=== PATIENT | female | born 1930 | race Caucasian/White ===

== ENCOUNTER 2016-11-20 12:34 | Inpatient (IN) ==
--- NOTE | 2016-11-20 13:30 | Emergency Department Note ---
Female Urogenital HPI - General Chief complaint: Urogenital-Female Stated complaint: Burning with urination Time Seen by Provider: 11/20/16 13:16 Source: patient, family Mode of arrival: wheelchair Limitations: no limitations - History of Present Illness HPI Narrative: 86-year-old female who was [facility] facility comes in with dysuria and burning with urination. Notes chills but no objective fever. She also complains of some vaginal swelling. States she's been constipated for 5 days took some prune juice this morning without effect. No new medicines besides a fluid pill for her lower extremity edema. Dr. waterman took her off of Plavix - Related Data Allergies Allergy/AdvReac Type Severity Reaction Status Date / Time metformin [METFORMIN] Allergy Intermediate Unknown Verified 11/20/16 12:40 Amoxicillin [AMOXICILLIN] Allergy Unknown UNKNOWN Verified 11/20/16 12:40 aspirin [ASPIRIN] Allergy Unknown Shortness Verified 11/20/16 12:40 of Breath codeine [CODEINE] Allergy Unknown UNKNOWN Verified 11/20/16 12:40 morphine [MORPHINE] AdvReac Unknown unknown Verified 11/20/16 12:40 From DEMEROL Allergy Unknown NAUSEA Uncoded 03/11/15 14:24 Review of Systems All systems ED: reviewed and negative except as stated. Past Medical History - Past Medical History Attestation: Yes: The following information was validated with the patient. Physical Exam Normocephalic atraumatic. Conjunctiva clear sclerae anicteric. No nasal discharge. Oropharynx is pink and moist. Heart is regular rate and rhythm. Lungs are clear to auscultation bilaterally. Abdomen is soft and mildly diffusely tender but worse in the lower quadrants. No peritoneal signs or guarding. Exam of the pelvis shows some mild redness to the vulva consistent with yeast. No discharge however noted. I do not see any vulvar swelling but perhaps the patient is she talking about pelvic area swelling - I don't see any distention however either. Bilateral lower extremities with trace edema. +2 radial pulse. Alert and oriented. Does not remember her medicines or medical conditions - General Limitations: no limitations Course Vital Signs Temperature 97.2 F L 11/20/16 12:35 Pulse Rate 70 11/20/16 12:35 Respiratory Rate 16 11/20/16 12:35 Blood Pressure 132/63 11/20/16 12:35 Pulse Oximetry (%) 99 11/20/16 12:35 Temperature 97.2 F L 11/20/16 12:35 Pulse Rate 66 11/20/16 15:26 Respiratory Rate 20 11/20/16 15:26 Blood Pressure 189/72 11/20/16 15:26 Pulse Oximetry (%) 98 11/20/16 15:26 Urogenital-Female - Lab Data Lab results reviewed: Yes I reviewed the patient's lab results. Result diagrams: 11/20/16 14:05 11/20/16 15:00 Lab Results 11/20/16 11/20/16 11/20/16 Range/Units 14:05 14:05 14:05 WBC 7.4 (4.5-11.0) K/mcL RBC 3.92 L (4.00-5.20) M/mcL Hgb 13.6 (12.0-15.0) g/dL Hct 40.1 (36.0-48.0) % POC Hct 42.0 (36.0-48.0) % MCV 102.3 H (80.0-100.0) fL MCH 34.6 H (26.0-34.0) pg MCHC 33.8 (31.0-36.0) g/dL RDW 11.9 (11.5-14.5) % Plt Count 288 (140-440) K/mcL MPV 9.2 (7.4-10.4) fL Gran % 68.2 (38.0-78.0) % Lymph % (Auto) 18.7 (15.5-49.0) % Kern % (Auto) 10.1 H (1.0-9.0) % Eos % (Auto) 2.3 (0.0-7.0) % Baso % (Auto) 0.7 (0.0-2.0) % Gran # 5.0 (1.8-8.0) K/mcL Lymph # 1.4 L (1.5-4.8) K/mcL Kern # 0.7 (0.1-0.9) K/mcL Eos # 0.2 (0.0-0.7) K/mcL Baso # 0.1 (0.0-0.3) K/mcL POC Sodium 130 L (133-145) mmol/L POC Potassium 4.9 (3.3-5.1) mmol/L POC Chloride 95 L (96-108) mmol/L POC Total CO2 23 (22-30) mmol/L POC BUN 32 H (8-23) mg/dl POC Creatinine 1.3 H (0.6-1.1) mg/dl POC Glucose 601 H* (70-105) mg/dL POC WB Ioniz Calcium 1.22 (1.16-1.32) mmol/L Beta-Hydroxybutyrate 0 (< 0.27) mmol/L Urinalysis shows moderate blood and leukocytes and specific gravity 1.010 - Radiology Data Radiology results reviewed: Yes I reviewed the patient's radiology results. Abdominal 2 view series shows no free air or concerning gas pattern. Lots of stool Disposition Clinical Impression: Hyperosmolar non-ketotic state in patient with type 2 diabetes mellitus, Constipation Urinary tract infection Qualifiers: Urinary tract infection type: acute cystitis Hematuria presence: with hematuria Qualified Code(s): N30.01 - Acute cystitis with hematuria Summary: Initially treated for UTI with possible yeast ciprofloxacin and Diflucan Then found to have blood sugar over 600- start IV insulin drip per protocol order set. Discussed with Dr. An, hospitalist who will admit for further care. He recommended Rocephin coverage as well Disposition: Xfer As Inpt ([facility]) Condition: Fair Referrals: Ana Cristina Valentine MD [Primary Care Provider] - Jose Carreon MD [Physician] -
[2016-11-20] MEDS ORDERED: FLUCONAZOLE 150 MG TABLET PO ONE (13:56)
[2016-11-20] MEDS ORDERED: CIPROFLOXACIN 500 MG TABLET PO ONE (13:56)
[2016-11-20] MEDS ORDERED: 0.9 % SODIUM CHLORIDE 1,000 ML IV ONE (14:42)
[2016-11-20] MEDS ORDERED: INSULIN REGULAR, HUMAN 50 UNIT in 0.9 % SODIUM CHLORIDE 100 ML IV SCH ×2 (14:45→15:46)
[2016-11-20] MEDS ORDERED: INSULIN REGULAR, HUMAN 1 UNIT/0.01 ML UNIT IV ONE (14:45)
[2016-11-20 14:58] LABS: Basophils # (Auto) 0.1 K/mcL (0.0-0.3); Basophils % (Auto) 0.7 % (0.0-2.0); Eosinophils # (Auto) 0.2 K/mcL (0.0-0.7); Eosinophils % (Auto) 2.3 % (0.0-7.0); Granulocytes % (Auto) 68.2 % (38.0-78.0); Lymphocytes # (Auto) 1.4 K/mcL (1.5-4.8); Lymphocytes % (Auto) 18.7 % (15.5-49.0); Mean Cell Volume 102.3 fL (80.0-100.0); Mean Corpuscular HGB Conc 33.8 g/dL (31.0-36.0); Mean Corpuscular Hemoglobin 34.6 pg (26.0-34.0); Monocytes # (Auto) 0.7 K/mcL (0.1-0.9); Monocytes % (Auto) 10.1 % (1.0-9.0); Platelet Count 288 K/mcL (140-440); RBC 3.92 M/mcL (4.00-5.20); Red Cell Distribution Width 11.9 % (11.5-14.5)
--- NOTE | 2016-11-20 15:26 | XRay Report ---
HISTORY: Reason for Exam:constipation x 5 days FINDINGS: There is a normal amount of stool throughout the colon. There is no evidence of bowel obstruction or free intra-abdominal air. Few small nonspecific air-fluid levels are seen in small and large intestine. There is no free intra-abdominal air. Vascular calcifications are seen in the abdomen or pelvis. The spine has a mild levoscoliotic curvature. There is more stool in the colon today than was in the prior exam done on 12/22/13. IMPRESSION: No evidence of bowel obstruction or fecal impaction Interpreted and Authenticated by: Tobi Tellez 11/20/16
[2016-11-20 15:47] LABS: Beta Hydroxybutyrate 0 mmol/L (< 0.27)
[2016-11-20] MEDS ORDERED: INSULIN REGULAR, HUMAN 50 UNIT in 0.9 % SODIUM CHLORIDE 99.5 ML IV SCH (15:48)
[2016-11-20] MEDS ORDERED: cefTRIAXone 1 GM in DEXTROSE 5% IN WATER 50 ML IV ONE (16:20)
[2016-11-20] MEDS ORDERED: POTASSIUM CHLORIDE 40 MEQ in DEXTROSE 5% IN WATER 500 ML IV ONE (16:20)
[2016-11-20] MEDS ORDERED: DEXTROSE 50% 50 ML VIAL IV ONE (17:31)
[2016-11-20 17:51] LABS: ALT/SGPT 13 U/l (0-40); Albumin/Globulin Ratio 1.4 (1.0-2.3); Alkaline Phosphatase 69 U/L (39-117); Bilirubin,Direct < 0.2 mg/dL (0.0-0.3); Blood Urea Nitrogen 30 mg/dl (8-23); Gamma Glutamyl Transpeptidase 14 U/L (5-36); Magnesium 1.8 mg/dL (1.6-2.5); Phosphorous 4.1 mg/dL (2.7-4.5)
[2016-11-20 18:18] LABS: Estimated Average Glucose(eAG) 280 mg/dL; Hemoglobin A1C 11.4 % HGB (4.0-6.0)
[2016-11-20] MEDS ORDERED: ACETAMINOPHEN 1,000 MG/100 ML BOTTLE IV PRN (19:18)
[2016-11-20] MEDS ORDERED: GENTAMICIN SULFATE 180 MG in 0.9 % SODIUM CHLORIDE 250 ML IV SCH (19:18)
[2016-11-20] MEDS ORDERED: POTASSIUM CHLORIDE 20 MEQ PACKET PO PRN (19:18)
[2016-11-20] MEDS ORDERED: DEXTROSE 50% 50 ML VIAL IV PRN (19:18)
[2016-11-20] MEDS ORDERED: ACETAMINOPHEN 325 MG TABLET PO PRN (19:18)
[2016-11-20] MEDS ORDERED: MAGNESIUM SULFATE 2 GM/50 ML BAG IV PRN (19:18)
[2016-11-20] MEDS ORDERED: ONDANSETRON 4 MG/2 ML VIAL IV PRN (19:18)
[2016-11-20] MEDS: cefTRIAXone 2 GM in DEXTROSE 5% IN WATER 50 ML IV SCH (20:32)
[2016-11-20] MEDS ORDERED: GENTAMICIN SULFATE 80 MG/2 ML VIAL ONE (20:40)
[2016-11-20] MEDS: HEPARIN 5,000 UNIT/ML VIAL SQ SCH (20:50)
[2016-11-20] MEDS: DOCUSATE SODIUM 100 MG CAPSULE PO SCH (20:50)
[2016-11-20] MEDS: INSULIN GLARGINE, HUMAN 1 UNIT/0.01 ML SQ SCH (20:51)
[2016-11-20] MEDS: INSULIN LISPRO 1 UNIT/0.01 ML UNIT SQ SCH (20:52)
[2016-11-20] MEDS: 0.9 % SODIUM CHLORIDE 1,000 ML IV SCH (20:54)
[2016-11-20 20:55] LABS: Appearance,Urine CLOUDY; Bacteria,Urine FEW /hpf (0); Bilirubin,Urine NEG (NEG); Color,Urine YELLOW; Glucose,Urine (UA) >=500 mg/dL (NEG); Leukocyte Esterase,Urine 500 /uL (NEG); Mucus,Urine FEW /hpf (0); Nitrate,Urine POS (NEG); Protein,Urine NEG (NEG); Specific Gravity,Urine 1.007 (1.000-1.035); Urine Blood 0.03 mg/dL (<0.03); Urine Budding Yeast FEW /hpf (0); Urine RBC 6 /hpf (0-1); Urine Squamous Epithelial Cell 0 /hpf (0-4); Urine Transitional Epi Cells < 1 /hpf (0-2); Urine WBC > 182 /hpf (0-4); Urobilinogen,Urine NEG (NEG)
[2016-11-20] MEDS: 0.9 % SODIUM CHLORIDE 10 ML SYRINGE IV SCH (20:55)
[2016-11-20] MEDS: SENNOSIDES/DOCUSATE SODIUM 1 TAB TABLET PO SCH (20:55)
[2016-11-20] MEDS: traZODone HCL 50 MG TABLET PO PRN (21:21)
[2016-11-21] MEDS: INSULIN LISPRO 1 UNIT/0.01 ML UNIT SQ SCH ×5 (04:28→20:41)
[2016-11-21 05:07] LABS: Mean Cell Volume 104.1 fL (80.0-100.0); Mean Corpuscular HGB Conc 33.3 g/dL (31.0-36.0); Mean Corpuscular Hemoglobin 34.7 pg (26.0-34.0); Platelet Count 262 K/mcL (140-440); RBC 3.46 M/mcL (4.00-5.20); Red Cell Distribution Width 12.8 % (11.5-14.5)
[2016-11-21 05:44] LABS: ALT/SGPT 12 U/l (0-40); Albumin 3.1 gm/dL (3.2-5.2); Albumin/Globulin Ratio 1.2 (1.0-2.3); Alkaline Phosphatase 56 U/L (39-117); Bilirubin,Direct < 0.2 mg/dL (0.0-0.3); Blood Urea Nitrogen 21 mg/dl (8-23); Gamma Glutamyl Transpeptidase 12 U/L (5-36); Magnesium 1.6 mg/dL (1.6-2.5); Phosphorous 2.5 mg/dL (2.7-4.5); Uric Acid 4.8 mg/dL (2.5-8.0)
[2016-11-21 05:48] LABS: Eosinophils % (Manual) 5 % (0-7); Lymphocytes % 20 % (15-49); Macrocytosis 1+ (NONE SEEN); Monocytes % (Manual) 12 % (1-9); RBC Morphology ABNORM (NORMAL); Segmented Neutrophils % 63 % (38-78)
[2016-11-21 05:59] LABS: Platelet Estimate NORMAL (NORMAL)
[2016-11-21] MEDS: 0.9 % SODIUM CHLORIDE 10 ML SYRINGE IV SCH ×3 (09:34→20:43)
[2016-11-21] MEDS: DOCUSATE SODIUM 100 MG CAPSULE PO SCH ×2 (09:34→20:38)
[2016-11-21] MEDS: HEPARIN 5,000 UNIT/ML VIAL SQ SCH ×2 (09:34→20:39)
[2016-11-21] MEDS: MULTIVIT,THER IRON,CA,FA & MIN 1 TABLET PO SCH (09:35)
[2016-11-21] MEDS: FOLIC ACID 1 MG TABLET PO SCH (09:35)
[2016-11-21] MEDS: cefTRIAXone 2 GM in DEXTROSE 5% IN WATER 50 ML IV SCH (09:36)
[2016-11-21] MEDS: INSULIN GLARGINE, HUMAN 1 UNIT/0.01 ML SQ SCH ×2 (09:42→20:41)
[2016-11-21] MEDS: sitaGLIPtin 100 MG TABLET PO SCH (09:44)
--- NOTE | 2016-11-21 09:44 | Internal Med Progress Note ---
Medical - PN: Subj Patient information: Note initiated : 11/21/16 at 9:40 am Service Date, if different from initiated Date: [] Patient: Teresa Nunn 86 y/o F admitted on 11/20/16 for Burning with urination. Chief Complaint: [] Interval history: 11/20- patient admitted with severe hyperglycemia along with complicated UTI. Resident of group daily assisted living. Significant weakness over the last few days and inability to care for self. Admitted as inpatient. started on insulin drip in ED. No evidence of DKA or hyperosmolar state along with pseudohyponatremia in light of elevated blood sugars. A1c over 11 indicative of poor outpatient control. Patient only on oral sulfonylurea 11/21-off insulin drip. patient agreeable to basal insulin. Start Lantus at 20 twice daily along with sliding scale and sitagliptin. continue physical therapy/ antibiotic coverage. urine significant pyuria with 482 WBCs. Check renal ultrasound to rule out obstructive uropathy. urine cultures negative to date. Improve renal function with creatinine down to 1. Scheduled outpatient diabetic education and self administration of insulin. - Constitutional Vitals: Vital Signs Temp Pulse Resp BP Pulse Ox 98.9 F 77 16 149/62 97 11/21/16 08:00 11/21/16 08:00 11/21/16 08:00 11/21/16 04:00 11/21/16 08:00 Period Temp Pulse Resp BP Sys/Cope Pulse Ox Last 24 Hr 97.5 F-99.2 F 64-79 16-20 128-162/53-62 97-100 Intake and Output 11/20/16 11/21/16 11/21/16 21:59 05:59 13:59 Intake Total 100 / 100 Output Total 1400 / 1400 Balance -1400 / -1400 100 / 100 Weight 137 lb 14.4 oz Intake & Output: Intake & Output 11/20/16 11/21/16 11/21/16 21:59 05:59 13:59 Intake Total 100 / 100 Output Total 1400 / 1400 Balance -1400 / -1400 100 / 100 Weight 137 lb 14.4 oz Intake: IV 100 / 100 Output: Urine Catheter Amount 1400 / 1400 General appearance: cooperative, no acute distress Exam: alert oriented nonlabored breathing no abdominal pain and distention No lymphedema Feels a lot better, no anxiety Medical - PN: Obj Da - Labs CBC & Chem 7: 11/21/16 03:50 11/21/16 03:50 Labs: Abnormal Lab Results 11/21/16 11/21/16 11/20/16 03:50 03:50 20:24 RBC 3.46 L MCV 104.1 H MCH 34.7 H Monocytes % (Manual) 12 H RBC Morphology Abnorm A Macrocytosis 1+ A Carbon Dioxide 21 L Phosphorus 2.5 L Total Protein 5.6 L Albumin 3.1 L Urine Glucose (UA) >=500 A Urine Ketones 5/tr A Urine Occult Blood 0.03 A Urine Nitrate Pos A Ur Leukocyte Esterase 500 A Urine RBC 6 H Urine WBC > 182 H Urine Bacteria Few A Urine Yeast (Budding) Few A Meds: Medications Acetaminophen (Tylenol) 650 mg PO Q4-6HP PRN PRN Reason: PAIN/FEVER > 101 Dextrose (Dextrose 50%) 0 ml IV UD PRN PRN Reason: Hypoglycemia Diagnostic Test (Pha) (Accu-Chek) 1 each FS ACHS [facility] Last Admin: 11/21/16 03:53 Dose: 1 each Docusate Sodium (Colace) 100 mg PO BID [facility] Last Admin: 11/21/16 09:34 Dose: 100 mg Folic Acid (Folic Acid) 1 mg PO DAILY [facility] Last Admin: 11/21/16 09:35 Dose: 1 mg Heparin Sodium (Porcine) (Heparin) 5,000 unit SQ Q12 [facility] Last Admin: 11/21/16 09:34 Dose: 5,000 unit Magnesium Sulfate (Magnesium Sulfate) 2 gm in 50 mls @ 50 mls/hr IV UD PRN PRN Reason: MG = or < 1.7 Sodium Chloride (Sodium Chloride 0.9%) 1,000 mls @ 50 mls/hr IV .Q20H [facility] Stop: 11/23/16 07:17 Last Admin: 11/20/16 20:54 Dose: 50 mls/hr Acetaminophen (Ofirmev) 1,000 mg in 100 mls @ 200 mls/hr IV Q6HP PRN PRN Reason: PAIN/FEVER > 101 Last Infusion: 11/21/16 07:12 Dose: Infused Ceftriaxone Sodium 2 gm/ (Dextrose) 50 mls @ 100 mls/hr IV Q24H [facility] Last Admin: 11/21/16 09:36 Dose: 100 mls/hr Insulin Glargine (Lantus) 20 unit SQ BID [facility] Insulin Human Lispro (Humalog) 0 unit SQ ACHS [facility] PRN Reason: Protocol Last Admin: 11/21/16 04:28 Dose: Not Given Iron Carb/Multivit/Acequia/Folic Acid (Multivitamin W/Minerals) 1 tab PO DAILY [facility] Last Admin: 11/21/16 09:35 Dose: 1 tab Ondansetron HCl (Zofran) 4 mg IV Q4-6HP PRN PRN Reason: Nausea And Vomiting Potassium Chloride (Klor-Con) 40 meq PO DAILYP PRN PRN Reason: K+ < 3.5 Senna/Docusate Sodium (Senna Plus Tablet) 1 tab PO HS [facility] Last Admin: 11/20/16 20:55 Dose: 1 tab Sitagliptin Phosphate (Januvia) 100 mg PO DAILY [facility] Sodium Chloride (Saline Flush) 10 ml IV Q8 [facility] Last Admin: 11/21/16 09:34 Dose: Not Given Trazodone HCl (Desyrel) 50 mg PO HSP PRN PRN Reason: Insomnia Last Admin: 11/20/16 21:21 Dose: 50 mg Medical - PN: A/P - Time Spent With Patient Total time spent is greater than 50% in coordination of care (as documented) at patient's floor/unit and/or counseling patient: 25 - 35 minutes (1) Hyperosmolar non-ketotic state in patient with type 2 diabetes mellitus Status: Acute Assessment and plan: * Hyper osmolar nonketotic state- over 600 blood sugars on admission. Improved with crystalloids and insulin. Continue basal prandial insulin. Diabetic education. Poorly controlled diabetes as outpatient with A1c 11.4. * complicated UTI-await cultures. Continue antibiotics. Renal ultrasound to rule out obstructive uropathy. * History of glaucoma on timolol/latanoprost * Hypothyroidism on thyroxine * hypertension on enalapril * History of CAD on Plavix * GERD on PPI plan * Basal bolus insulin/sitagliptin/diabetic education * Antibiotic coverage and de-escalate based on cultures * renal ultrasound * Pre-existing medical condition management as above * Possible discharge in 48 hours based on physical therapy recommendations Current Visit: Yes Medical - PN: Qual - VTE Deep Vein Thrombosis/Pulmonary Embolism Present on Admission: No
[2016-11-21] MEDS ORDERED: POLYETHYLENE GLYCOL 3350 17 GM PACKET PO PRN (09:50)
--- NOTE | 2016-11-21 13:11 | History and Physical Report ---
DATE OF ADMISSION: 11/20/2016 REASON FOR ADMISSION: Weakness along with burning sensation, dysuria, frequency. HISTORY OF CHIEF COMPLAINT: This is an 86-year-old resident of [facility]. She comes to [facility] Emergency Room with roughly 48-hour onset of increasing frequency, burning sensation, along with weakness. Initial workup in the ER was significant for blood sugars over 600 along with pyuria. The patient was started on insulin drip along with antibiotics. Cultures were obtained. Hospitalist Service was consulted in light of high risk decompensation given hyperosmolar nonketotic state. At the time of examination, the patient is fatigued, lethargic but able to answer some of the questions. She is barely able to open her eyes. No family members were present. She denies chest pain, recent diarrhea, joint swelling, headache, photophobia but because of extreme lethargy she was unable to provide a detailed history or course of events. REVIEW OF SYSTEMS: Ten-point review of system was performed and negative except the ones discussed above. PAST MEDICAL HISTORY: 1. History of diabetes mellitus type 2. 2. Peripheral vascular disease. 3. Hypothyroidism. 4. Hypertension. 5. Coronary artery disease. 6. Glaucoma. 7. GERD. CURRENT MEDICATIONS: 1. Timolol eye drops. 2. Prednisone eyedrops. 3. Oxybutynin 10 mg q.a.m. 4. Levothyroxine 125 mcg. 5. Glipizide 5 mg a.m. and 5 mg p.m. 6. Enalapril 10 mg b.i.d. 7. Latanoprost both eyes. 8. Plavix 75 mg. Apparently the patient has discontinued taking Plavix 9. Oxybutynin 5 mg. 10. Pantoprazole 40 mg. SOCIAL HISTORY: The patient is a [employer] and lives at [facility]. No family members are present. Denies history of smoking or alcoholism. FAMILY HISTORY: Not relevant to presenting symptoms. PHYSICAL EXAMINATION: GENERAL: The patient is lethargic, fatigued. BMI 22. Height 5 feet 6 inches. VITAL SIGNS: Blood pressure 162/53, respiration rate 20, temperature 98.3, pulse 77, sats 100% on room air. HEENT: Pupils symmetric. Oral cavity is dry. No ear or nose discharge. Head is normocephalic and atraumatic. NECK: No lymphadenopathy. HEART: S1, S2, regular rhythm. Ejection systolic murmur grade 1. Diminished breath sounds at bases. ABDOMEN: Soft and nontender. LOWER EXTREMITIES: No cyanosis or clubbing. No joint swelling. SKIN: No suspicious lesions. PSYCHIATRIC: Lethargic, fatigued, but no agitation or hallucination. NEURO: Nonfocal, moving all four extremities. Higher function could not be checked due to patient being somnolent. LABS AND IMAGING: White count 7.4, hemoglobin 13.6, platelets 288. Sodium 130, potassium 4.9, creatinine 1.3, BUN 32. Blood sugar was 601. UA pyuria. Cultures pending. ABG 7.47/30/109. X-ray abdomen: Unremarkable. ASSESSMENT AND PLAN: An 86-year-old admitted with hyperosmolar nonketotic state along with complicated UTI. 1. Hyperosmolar nonketotic state. Poorly controlled diabetes. The patient was started on insulin drip along with crystalloids while we continue monitoring the patient in telemetry. 2. Complicated UTI. Continue antibiotic coverage. Await cultures and deescalate based on results. 3. Severe deconditioning. Continue physical therapy. 4. Prior medical issues, including: a. History of peripheral vascular disease. Apparently the patient has stopped taking Plavix. b. Diabetes mellitus type 2. Continue basal prandial insulin along with diabetic education. c. Hypothyroidism. Continue thyroxine. d. Hypertension. Continue lisinopril. e. History of glaucoma. Continue timolol/latanoprost. PLAN FOR TODAY: 1. Admit as inpatient telemetry. 2. Antibiotic coverage. 3. Insulin drip and transition to basal-bolus insulin. 4. Preexisting medical condition management as above. AA:oliver Job ID: [id number] Doc ID: [id number] Jose Valentine MD
--- NOTE | 2016-11-21 13:25 | Ultrasound Report ---
History: Urinary tract obstruction with burning while urinating Findings: The right kidney measures 4.5 x 4.6 x 10.1 cm left measures 3.8 x 5.0 x 10.5 cm. There is no hydronephrosis and no mass or cyst in either kidney. Centrally in the left kidney there is a 6 x 7 mm echogenic structure which shadows. This is probably a nonobstructing calyceal stone.. Urinary bladder is decompressed and cannot be evaluated. Since bladder is decompressed were also unable to evaluate for flow of urine through either ureter into the bladder. Impression: 6 x 7 mm nonobstructing stone in the left kidney. The kidneys are otherwise normal. Interpreted and Authenticated by: Tobi Tellez 11/21/16
[2016-11-21] MEDS: 0.9 % SODIUM CHLORIDE 1,000 ML IV SCH (17:10)
[2016-11-21] MEDS: traZODone HCL 50 MG TABLET PO PRN (20:39)
[2016-11-21] MEDS: LISINOPRIL 10 MG TABLET PO SCH (20:39)
[2016-11-21] MEDS: SENNOSIDES/DOCUSATE SODIUM 1 TAB TABLET PO SCH (20:39)
[2016-11-21] MEDS ORDERED: LATANOPROST OPHTH DROPS 2.5ML BOTTLE OU SCH (21:00)
[2016-11-21] MEDS ORDERED: OXYBUTYNIN CHLORIDE 5 MG TABLET PO SCH (21:00)
[2016-11-22 05:19] LABS: Mean Cell Volume 104.8 fL (80.0-100.0); Mean Corpuscular HGB Conc 32.6 g/dL (31.0-36.0); Mean Corpuscular Hemoglobin 34.2 pg (26.0-34.0); Platelet Count 246 K/mcL (140-440); RBC 3.43 M/mcL (4.00-5.20); Red Cell Distribution Width 12.8 % (11.5-14.5)
[2016-11-22 05:48] LABS: ALT/SGPT 10 U/l (0-40); Albumin/Globulin Ratio 1.1 (1.0-2.3); Alkaline Phosphatase 55 U/L (39-117); Bilirubin,Direct < 0.2 mg/dL (0.0-0.3); Blood Urea Nitrogen 16 mg/dl (8-23); Gamma Glutamyl Transpeptidase 14 U/L (5-36); Magnesium 2.2 mg/dL (1.6-2.5); Phosphorous 3.8 mg/dL (2.7-4.5); Uric Acid 4.5 mg/dL (2.5-8.0)
[2016-11-22] MEDS: 0.9 % SODIUM CHLORIDE 10 ML SYRINGE IV SCH ×3 (06:48→22:35)
[2016-11-22] MEDS: PANTOPRAZOLE 40 MG TABLET PO SCH (07:27)
[2016-11-22] MEDS: INSULIN LISPRO 1 UNIT/0.01 ML UNIT SQ SCH ×4 (07:29→22:34)
[2016-11-22] MEDS ORDERED: LEVOTHYROXINE 125 MCG TABLET PO SCH (07:30)
[2016-11-22 08:02] LABS: Band Neutrophils % 1 % (0-10); Eosinophils % (Manual) 1 % (0-7); Lymphocytes % 20 % (15-49); Macrocytosis 1+ (NONE SEEN); Monocytes % (Manual) 7 % (1-9); Platelet Estimate NORMAL (NORMAL); RBC Morphology ABNORM (NORMAL); Segmented Neutrophils % 71 % (38-78)
[2016-11-22] MEDS: HEPARIN 5,000 UNIT/ML VIAL SQ SCH ×2 (08:55→22:15)
[2016-11-22] MEDS: cefTRIAXone 2 GM in DEXTROSE 5% IN WATER 50 ML IV SCH (08:55)
[2016-11-22] MEDS: MULTIVIT,THER IRON,CA,FA & MIN 1 TABLET PO SCH (08:56)
[2016-11-22] MEDS: FOLIC ACID 1 MG TABLET PO SCH (08:56)
[2016-11-22] MEDS: LISINOPRIL 10 MG TABLET PO SCH ×2 (08:56→22:13)
[2016-11-22] MEDS: DOCUSATE SODIUM 100 MG CAPSULE PO SCH ×2 (08:56→22:13)
[2016-11-22] MEDS: INSULIN GLARGINE, HUMAN 1 UNIT/0.01 ML SQ SCH ×2 (08:57→22:37)
[2016-11-22] MEDS ORDERED: OXYBUTYNIN CHLORIDE 5 MG TAB.XL.24H PO SCH (09:00)
[2016-11-22] MEDS ORDERED: CLOPIDOGREL 75 MG TABLET PO SCH (09:00)
[2016-11-22] MEDS: sitaGLIPtin 100 MG TABLET PO SCH (09:02)
[2016-11-22] MEDS ORDERED: GABAPENTIN 100 MG CAPSULE PO SCH (10:15)
--- NOTE | 2016-11-22 11:32 | Internal Med Progress Note ---
Medical - PN: Subj Patient information: Note initiated : 11/22/16 at 11:29 am Service Date, if different from initiated Date: [] Patient: Teresa Nunn 86 y/o F admitted on 11/20/16 for Burning with urination. Chief Complaint: [] Interval history: 11/20- patient admitted with severe hyperglycemia along with complicated UTI. Resident of group daily assisted living. Significant weakness over the last few days and inability to care for self. Admitted as inpatient. started on insulin drip in ED. No evidence of DKA or hyperosmolar state along with pseudohyponatremia in light of elevated blood sugars. A1c over 11 indicative of poor outpatient control. Patient only on oral sulfonylurea 11/21-off insulin drip. patient agreeable to basal insulin. Start Lantus at 20 twice daily along with sliding scale and sitagliptin. continue physical therapy/ antibiotic coverage. urine significant pyuria with 482 WBCs. Check renal ultrasound to rule out obstructive uropathy. urine cultures negative to date. Improve renal function with creatinine down to 1. Scheduled outpatient diabetic education and self administration of insulin. 11/22-patient doing remarkably well on basal bolus insulin/sitagliptin. a.m. sugars 94. Lower Lantus to 15 twice a day. White count at 11,000. renal function normalized. Electrolytes within normal range. rine culture revealed gram-negative carl. continue Rocephin. Possible discharge in 24-48 hours if clinically improved with outpatient insulin/antibiotics. Case management to arrange SNF transfer/home health based onPT recommendations - Constitutional Vitals: Vital Signs Temp Pulse Resp BP Pulse Ox 97.9 F 94 H 18 129/81 98 11/22/16 08:00 11/22/16 08:00 11/22/16 08:00 11/22/16 08:00 11/22/16 08:00 Period Temp Pulse Resp BP Sys/Cope Pulse Ox Last 24 Hr 97.9 F-98.9 F 61-94 14-20 129-162/58-85 93-100 Intake and Output 11/21/16 11/22/16 11/22/16 21:59 05:59 13:59 Intake Total 1240 / 1240 380 / 380 Output Total 150 / 150 1000 / 1000 Balance 1090 / 1090 -1000 / -1000 380 / 380 Weight 141 lb 1.6 oz Intake & Output: Intake & Output 11/21/16 11/22/16 11/22/16 21:59 05:59 13:59 Intake Total 1240 / 1240 380 / 380 Output Total 150 / 150 1000 / 1000 Balance 1090 / 1090 -1000 / -1000 380 / 380 Weight 141 lb 1.6 oz Intake: IV 1000 / 1000 Sodium Chloride 0.9% 1, 1000 / 1000 000 ml @ 50 mls/hr IV . Q20H [facility] Rx#:[id number] Oral 240 / 240 380 / 380 Output: Urine Catheter Amount 150 / 150 1000 / 1000 Other: Meal Lunch Breakfast Percent of Meal Consumed 50% 100% Feeding Ability Assist with Tray Set Up Assist with Tray Set Up # Bowel Movements 0 General appearance: cooperative, no acute distress Exam: alert oriented nonlabored breathing No fever chills Weakness but able to ambulate with assistance Medical - PN: Obj Da - Labs CBC & Chem 7: 11/22/16 03:25 11/22/16 03:25 Labs: Abnormal Lab Results 11/22/16 11/22/16 11/21/16 03:25 03:25 03:50 WBC 12.1 H RBC 3.43 L Hgb 11.7 L Hct 35.9 L MCV 104.8 H MCH 34.2 H Monocytes % (Manual) RBC Morphology Abnorm A Macrocytosis 1+ A Carbon Dioxide 21 L Phosphorus 2.5 L Total Protein 5.7 L 5.6 L Albumin 3.0 L 3.1 L Triglycerides 186 H Urine Glucose (UA) Urine Ketones Urine Occult Blood Urine Nitrate Ur Leukocyte Esterase Urine RBC Urine WBC Urine Bacteria Urine Yeast (Budding) 11/21/16 11/20/16 03:50 20:24 WBC RBC 3.46 L Hgb Hct MCV 104.1 H MCH 34.7 H Monocytes % (Manual) 12 H RBC Morphology Abnorm A Macrocytosis 1+ A Carbon Dioxide Phosphorus Total Protein Albumin Triglycerides Urine Glucose (UA) >=500 A Urine Ketones 5/tr A Urine Occult Blood 0.03 A Urine Nitrate Pos A Ur Leukocyte Esterase 500 A Urine RBC 6 H Urine WBC > 182 H Urine Bacteria Few A Urine Yeast (Budding) Few A Meds: Medications Acetaminophen (Tylenol) 650 mg PO Q4-6HP PRN PRN Reason: PAIN/FEVER > 101 Last Admin: 11/22/16 07:27 Dose: 650 mg Clopidogrel Bisulfate (Plavix) 75 mg PO DAILY [facility] Last Admin: 11/22/16 08:56 Dose: 75 mg Dextrose (Dextrose 50%) 0 ml IV UD PRN PRN Reason: Hypoglycemia Diagnostic Test (Pha) (Accu-Chek) 1 each FS ACHS [facility] Last Admin: 11/22/16 07:28 Dose: 1 each Docusate Sodium (Colace) 100 mg PO BID [facility] Last Admin: 11/22/16 08:56 Dose: 100 mg Folic Acid (Folic Acid) 1 mg PO DAILY [facility] Last Admin: 11/22/16 08:56 Dose: 1 mg Gabapentin (Neurontin) 100 mg PO BID [facility] Last Admin: 11/22/16 10:47 Dose: 100 mg Heparin Sodium (Porcine) (Heparin) 5,000 unit SQ Q12 [facility] Last Admin: 11/22/16 08:55 Dose: 5,000 unit Magnesium Sulfate (Magnesium Sulfate) 2 gm in 50 mls @ 50 mls/hr IV UD PRN PRN Reason: MG = or < 1.7 Last Admin: 11/21/16 20:41 Dose: 50 mls/hr Sodium Chloride (Sodium Chloride 0.9%) 1,000 mls @ 50 mls/hr IV .Q20H [facility] Stop: 11/23/16 07:17 Last Admin: 11/21/16 17:10 Dose: 50 mls/hr Acetaminophen (Ofirmev) 1,000 mg in 100 mls @ 200 mls/hr IV Q6HP PRN PRN Reason: PAIN/FEVER > 101 Last Infusion: 11/21/16 07:12 Dose: Infused Ceftriaxone Sodium 2 gm/ (Dextrose) 50 mls @ 100 mls/hr IV Q24H [facility] Last Admin: 11/22/16 08:55 Dose: 100 mls/hr Insulin Glargine (Lantus) 20 unit SQ BID [facility] Last Admin: 11/22/16 08:57 Dose: 20 unit Insulin Human Lispro (Humalog) 0 unit SQ ACHS [facility] PRN Reason: Protocol Last Admin: 11/22/16 07:29 Dose: Not Given Iron Carb/Multivit/[place]/Folic Acid (Multivitamin W/Minerals) 1 tab PO DAILY [facility] Last Admin: 11/22/16 08:56 Dose: 1 tab Latanoprost (Xalatan Ophth Drops) 1 gtt OU HS [facility] Last Admin: 11/21/16 20:42 Dose: Not Given Levothyroxine [facility] ([facility]throid) [facility] Last Admin: 11/22/16 07:27 Dose: 125 mcg Lisinopril (Zestril) 10 mg PO BID [facility] Last Admin: 11/22/16 08:56 Dose: 10 mg Ondansetron HCl (Zofran) 4 mg IV Q4-6HP PRN PRN Reason: Nausea And Vomiting Oxybutynin Chloride (Ditropan Xl) 10 mg PO DAILY [facility] Last Admin: 11/22/16 09:02 Dose: 10 mg Oxybutynin Chloride (Ditropan) 5 mg PO [facility] Last Admin: 11/21/16 20:39 Dose: 5 mg Pantoprazole Sodium (Protonix) [facility] Last Admin: 11/22/16 07:27 Dose: 40 mg Refresh Optive Eye (Drops) 1 dose BOTH EYES PRN PRN PRN Reason: dry eyes Timolol Maleate 0.5% (Eye Drops) [facility] [place] Admin: 11/22/16 08:58 Dose: Not Given Prednisolone 1% (Ophth Drops) 1 dose BOTH EYES 3-4XD [facility] Polyethylene Glycol (Miralax) 17 gm PO DAILYP PRN PRN Reason: Constipation Last Admin: 11/21/16 11:29 Dose: 17 gm Potassium Chloride (Klor-Con) 40 meq PO DAILYP PRN PRN Reason: K+ < 3.5 Senna/Docusate Sodium (Senna Plus Tablet) 1 tab PO [facility] Last Admin: 11/21/16 20:39 Dose: 1 tab Sitagliptin Phosphate (Januvia) 100 mg PO DAILY [facility] Last Admin: 11/22/16 09:02 Dose: 100 mg Sodium Chloride (Saline Flush) 10 ml IV Q8 [facility] Last Admin: 11/22/16 06:48 Dose: Not Given Trazodone HCl (Desyrel) 50 mg PO HSP PRN PRN Reason: Insomnia Last Admin: 11/21/16 20:39 Dose: 50 mg Medical - PN: A/P - Time Spent With Patient Total time spent is greater than 50% in coordination of care (as documented) at patient's floor/unit and/or counseling patient: 25 - 35 minutes (1) Hyperosmolar non-ketotic state in patient with type 2 diabetes mellitus Status: Acute Assessment and plan: * Complicated UTI-GNR on cultures await sensitivities. renal ultrasound 6-7 mm left renal stone. No evidence of obstruction * Severe sepsis-on antibiotic coverage. Stable hemodynamics. white count at 12, 000. Transfer to medical floor in light of stable hemodynamics * Hyper osmolar nonketotic state- Clinically resolved. dequate blood sugar control on Lantus. Continue diabetic education. Lower Lantus dose to 15 twice a day. * acute kidney injury- creatinine down to normal at 0.9-1.3 * History of glaucoma on timolol/latanoprost * Hypothyroidism on thyroxine * hypertension on enalapril * History of CAD on Plavix * GERD on PPI plan * Lantus 15 twice daily * Continue Rocephin, await cultures * transfer to medical floor * Pre-existing medical condition management as above * possible discharge in 24 hours Current Visit: Yes Medical - PN: Qual - VTE Deep Vein Thrombosis/Pulmonary Embolism Present on Admission: No
[2016-11-22] MEDS ORDERED: ONDANSETRON 4 MG/2 ML VIAL IV PRN (12:09)
[2016-11-22] MEDS ORDERED: DEXTROSE 50% 50 ML VIAL IV PRN (12:09)
[2016-11-22] MEDS ORDERED: POTASSIUM CHLORIDE 20 MEQ PACKET PO PRN (12:09)
[2016-11-22] MEDS ORDERED: traZODone HCL 50 MG TABLET PO PRN (12:09)
[2016-11-22] MEDS ORDERED: ACETAMINOPHEN 1,000 MG/100 ML BOTTLE IV PRN (12:09)
[2016-11-22] MEDS ORDERED: MAGNESIUM SULFATE 2 GM/50 ML BAG IV PRN (12:09)
[2016-11-22] MEDS: 0.9 % SODIUM CHLORIDE 1,000 ML IV SCH (14:00)
[2016-11-22] MEDS ORDERED: INSULIN GLARGINE, HUMAN 1 UNIT/0.01 ML SQ SCH (21:00)
[2016-11-22] MEDS: GABAPENTIN 100 MG CAPSULE PO SCH (22:13)
[2016-11-22] MEDS: OXYBUTYNIN CHLORIDE 5 MG TABLET PO SCH (22:13)
[2016-11-22] MEDS: POLYETHYLENE GLYCOL 3350 17 GM PACKET PO PRN (22:13)
[2016-11-22] MEDS: LATANOPROST OPHTH DROPS 2.5ML BOTTLE OU SCH (22:17)
[2016-11-22] MEDS: SENNOSIDES/DOCUSATE SODIUM 1 TAB TABLET PO SCH (22:34)
[2016-11-23] MEDS ORDERED: HYDROmorphone 2 MG/ML SYRINGE IV PRN (04:16)
[2016-11-23] MEDS ORDERED: HYDROmorphone 2 MG/ML SYRINGE ONE (04:33)
[2016-11-23] MEDS: 0.9 % SODIUM CHLORIDE 10 ML SYRINGE IV SCH ×2 (04:42→14:39)
[2016-11-23 05:40] LABS: Mean Cell Volume 105.5 fL (80.0-100.0); Mean Corpuscular HGB Conc 32.6 g/dL (31.0-36.0); Mean Corpuscular Hemoglobin 34.4 pg (26.0-34.0); Platelet Count 227 K/mcL (140-440); RBC 3.34 M/mcL (4.00-5.20); Red Cell Distribution Width 12.8 % (11.5-14.5)
[2016-11-23 05:53] LABS: ALT/SGPT 11 U/l (0-40); Albumin 3.2 gm/dL (3.2-5.2); Albumin/Globulin Ratio 1.1 (1.0-2.3); Alkaline Phosphatase 58 U/L (39-117); Bilirubin,Direct < 0.2 mg/dL (0.0-0.3); Blood Urea Nitrogen 15 mg/dl (8-23); Gamma Glutamyl Transpeptidase 13 U/L (5-36); Magnesium 1.8 mg/dL (1.6-2.5); Phosphorous 4.4 mg/dL (2.7-4.5); Uric Acid 4.2 mg/dL (2.5-8.0)
[2016-11-23] MEDS ORDERED: FLEETS ADULT ENEMA PR PRN (06:48)
[2016-11-23] MEDS ORDERED: MAGNESIUM HYDROXIDE 30 ML ORAL.SUSP PO PRN (06:48)
[2016-11-23] MEDS ORDERED: BISACODYL 10 MG SUPP.RECT PR PRN (06:48)
[2016-11-23 08:10] LABS: Eosinophils % (Manual) 2 % (0-7); Lymphocytes % 9 % (15-49); Macrocytosis 2+ (NONE SEEN); Monocytes % (Manual) 7 % (1-9); Platelet Estimate NORMAL (NORMAL); RBC Morphology ABNORM (NORMAL); Segmented Neutrophils % 82 % (38-78)
[2016-11-23] MEDS: LEVOTHYROXINE 125 MCG TABLET PO SCH (08:15)
[2016-11-23] MEDS: PANTOPRAZOLE 40 MG TABLET PO SCH (08:15)
--- NOTE | 2016-11-23 08:26 | Ultrasound Report ---
History: Tenderness in the calf with burning, evaluate for deep venous thrombosis Findings: There is normal augmentation and compressibility of the deep veins in the right leg from the groin through the calf. Doppler shows normal waveform patterns. There is no abnormal fluid collection. Impression: Normal exam, without evidence of deep venous thrombosis Interpreted and Authenticated by: Tobi Tellez 11/23/16
[2016-11-23] MEDS ORDERED: FLUCONAZOLE 100 MG TABLET PO SCH (09:00)
[2016-11-23] MEDS: HEPARIN 5,000 UNIT/ML VIAL SQ SCH ×2 (09:08→21:07)
[2016-11-23] MEDS: DOCUSATE SODIUM 100 MG CAPSULE PO SCH ×2 (09:08→21:06)
[2016-11-23] MEDS: sitaGLIPtin 100 MG TABLET PO SCH (09:09)
[2016-11-23] MEDS: FOLIC ACID 1 MG TABLET PO SCH (09:09)
[2016-11-23] MEDS: OXYBUTYNIN CHLORIDE 5 MG TAB.XL.24H PO SCH (09:09)
[2016-11-23] MEDS: LISINOPRIL 10 MG TABLET PO SCH ×2 (09:09→21:06)
[2016-11-23] MEDS: GABAPENTIN 100 MG CAPSULE PO SCH ×2 (09:09→21:07)
[2016-11-23] MEDS: cefTRIAXone 2 GM in DEXTROSE 5% IN WATER 50 ML IV SCH (09:10)
[2016-11-23] MEDS: CLOPIDOGREL 75 MG TABLET PO SCH (09:10)
[2016-11-23] MEDS: INSULIN LISPRO 1 UNIT/0.01 ML UNIT SQ SCH ×4 (09:10→21:26)
[2016-11-23] MEDS: MULTIVIT,THER IRON,CA,FA & MIN 1 TABLET PO SCH (09:10)
[2016-11-23] MEDS: INSULIN GLARGINE, HUMAN 1 UNIT/0.01 ML SQ SCH ×2 (09:11→21:26)
[2016-11-23] MEDS: POLYETHYLENE GLYCOL 3350 17 GM PACKET PO PRN (09:11)
[2016-11-23] MEDS ORDERED: CASPOFUNGIN ACETATE 70 MG in 0.9 % SODIUM CHLORIDE 250 ML IV ONE (10:00)
--- NOTE | 2016-11-23 10:46 | Internal Med Progress Note ---
Medical - PN: Subj Patient information: Note initiated : 11/23/16 at 10:43 am Service Date, if different from initiated Date: [] Patient: Teresa Nunn 86 y/o F admitted on 11/20/16 for Burning with urination. Chief Complaint: [] Interval history: 11/20- patient admitted with severe hyperglycemia along with complicated UTI. Resident of group daily assisted living. Significant weakness over the last few days and inability to care for self. Admitted as inpatient. started on insulin drip in ED. No evidence of DKA or hyperosmolar state along with pseudohyponatremia in light of elevated blood sugars. A1c over 11 indicative of poor outpatient control. Patient only on oral sulfonylurea 11/21-off insulin drip. patient agreeable to basal insulin. Start Lantus at 20 twice daily along with sliding scale and sitagliptin. continue physical therapy/ antibiotic coverage. urine significant pyuria with 482 WBCs. Check renal ultrasound to rule out obstructive uropathy. urine cultures negative to date. Improve renal function with creatinine down to 1. Scheduled outpatient diabetic education and self administration of insulin. 11/22-patient doing remarkably well on basal bolus insulin/sitagliptin. a.m. sugars 94. Lower Lantus to 15 twice a day. White count at 11,000. renal function normalized. Electrolytes within normal range. Urine culture revealed gram-negative carl. continue Rocephin. Possible discharge in 24-48 hours if clinically improved with outpatient insulin/antibiotics. Case management to arrange SNF transfer/home health based onPT recommendations 11/23- patient complaining of right lower extremity pain/tenderness. Ultrasound for DVT negative. White count at 14.8 [place] from [id number]. Urine culture showing GNR /Karley. Added caspofungin in light of interaction with fluconazole with Plavix. repeat UA. Hold discharge until white count downtrending and clinically improves. No overnight fever chills. patient appears weak and lethargic. continue physical therapy. Anticipate SNF transfer in 48 hours if clinically improved. - Constitutional Vitals: Vital Signs Temp Pulse Resp BP Pulse Ox 97.4 F L 75 14 132/52 98 11/23/16 06:30 11/23/16 07:07 11/23/16 06:30 11/23/16 06:30 11/23/16 07:07 Period Temp Pulse Resp BP Sys/Cope Pulse Ox Last 24 Hr 97.2 F-99.1 F 66-75 14-20 129-159/52-74 94-100 Intake and Output 11/22/16 11/23/16 11/23/16 21:59 05:59 13:59 Intake Total 1740 / 1740 250 / 250 Output Total 800 / 800 850 / 850 Balance 940 / 940 -600 / -600 Weight 144 lb Intake & Output: Intake & Output 11/22/16 11/23/16 11/23/16 21:59 05:59 13:59 Intake Total 1740 / 1740 250 / 250 Output Total 800 / 800 850 / 850 Balance 940 / 940 -600 / -600 Weight 144 lb Intake: IV 1000 / 1000 Sodium Chloride 0.9% 1, 1000 / 1000 000 ml @ 50 mls/hr IV . Q20H [facility] Rx#:[id number] Oral 740 / 740 250 / 250 Output: Urine Catheter Amount 800 / 800 850 / 850 Other: Meal Dinner Percent of Meal Consumed 100% Feeding Ability Assist with Tray Set Up General appearance: no acute distress Exam: appears weak and fatigued Nonlabored breathing nondistended abdomen No lymphedema Minimal swelling right lower extremity Medical - PN: Obj Da - Labs CBC & Chem 7: 11/23/16 03:55 11/23/16 03:55 Labs: Abnormal Lab Results 11/23/16 11/23/16 11/22/16 03:55 03:55 03:25 WBC 14.8 H RBC 3.34 L Hgb 11.5 L Hct 35.3 L MCV 105.5 H MCH 34.4 H Seg Neutrophils % 82 H Lymphocytes % 9 L Monocytes % (Manual) RBC Morphology Abnorm A Macrocytosis 2+ A Sodium 132 L Carbon Dioxide Glucose 126 H Phosphorus Total Protein 5.7 L Albumin 3.0 L Triglycerides 186 H Urine Glucose (UA) Urine Ketones Urine Occult Blood Urine Nitrate Ur Leukocyte Esterase Urine RBC Urine WBC Urine Bacteria Urine Yeast (Budding) 11/22/16 11/21/16 11/21/16 03:25 03:50 03:50 WBC 12.1 H RBC 3.43 L 3.46 L Hgb 11.7 L Hct 35.9 L MCV 104.8 H 104.1 H MCH 34.2 H 34.7 H Seg Neutrophils % Lymphocytes % Monocytes % (Manual) 12 H RBC Morphology Abnorm A Abnorm A Macrocytosis 1+ A 1+ A Sodium Carbon Dioxide 21 L Glucose Phosphorus 2.5 L Total Protein 5.6 L Albumin 3.1 L Triglycerides Urine Glucose (UA) Urine Ketones Urine Occult Blood Urine Nitrate Ur Leukocyte Esterase Urine RBC Urine WBC Urine Bacteria Urine Yeast (Budding) 11/20/16 20:24 WBC RBC Hgb Hct MCV MCH Seg Neutrophils % Lymphocytes % Monocytes % (Manual) RBC Morphology Macrocytosis Sodium Carbon Dioxide Glucose Phosphorus Total Protein Albumin Triglycerides Urine Glucose (UA) >=500 A Urine Ketones 5/tr A Urine Occult Blood 0.03 A Urine Nitrate Pos A Ur Leukocyte Esterase 500 A Urine RBC 6 H Urine WBC > 182 H Urine Bacteria Few A Urine Yeast (Budding) Few A Meds: Medications Acetaminophen (Tylenol) 650 mg PO Q4-6HP PRN PRN Reason: PAIN/FEVER > 101 Bisacodyl (Dulcolax) 10 mg [place] Q2-3DAYS PRN PRN Reason: Constipation Clopidogrel Bisulfate (Plavix) 75 mg PO DAILY [facility] Last Admin: 11/23/16 09:10 Dose: 75 mg Dextrose (Dextrose 50%) 0 ml IV UD PRN PRN Reason: Hypoglycemia Diagnostic Test (Pha) (Accu-Chek) 1 each FS ACHS [facility] Last Admin: 11/23/16 08:15 Dose: 1 each Docusate Sodium (Colace) 100 mg PO BID [facility] Last Admin: 11/23/16 09:08 Dose: 100 mg Folic Acid (Folic Acid) 1 mg PO DAILY [facility] Last Admin: 11/23/16 09:09 Dose: 1 mg Gabapentin (Neurontin) 100 mg PO BID [facility] Last Admin: 11/23/16 09:09 Dose: 100 mg Heparin Sodium (Porcine) (Heparin) 5,000 unit SQ Q12 [facility] Last Admin: 11/23/16 09:08 Dose: 5,000 unit Hydromorphone HCl (Dilaudid) 0.5 mg IV Q6HP PRN PRN Reason: Pain Magnesium Sulfate (Magnesium Sulfate) 2 gm in 50 mls @ 50 mls/hr IV UD PRN PRN Reason: MG = or < 1.7 Acetaminophen (Ofirmev) 1,000 mg in 100 mls @ 200 mls/hr IV Q6HP PRN PRN Reason: PAIN/FEVER > 101 Ceftriaxone Sodium 2 gm/ (Dextrose) 50 mls @ 100 mls/hr IV Q24H [facility] Last Admin: 11/23/16 09:10 Dose: 100 mls/hr Caspofungin 70 mg/ Sodium (Chloride) 250 mls @ 250 mls/hr IV ONCE ONE Stop: 11/23/16 10:59 Caspofungin 50 mg/ Sodium (Chloride) 250 mls @ 250 mls/hr IV Q24H [facility] Stop: 11/27/16 09:59 Insulin Glargine (Lantus) 15 unit SQ BID [facility] Last Admin: 11/23/16 09:11 Dose: 15 unit Insulin Human Lispro (Humalog) 0 unit SQ ACHS [facility] PRN Reason: Protocol Last Admin: 11/23/16 09:10 Dose: 2 unit Iron Carb/Multivit/[place]/Folic Acid (Multivitamin W/Minerals) 1 tab PO DAILY [facility] Last Admin: 11/23/16 09:10 Dose: 1 tab Latanoprost (Xalatan Ophth Drops) 1 gtt OU HS [facility] Last Admin: 11/22/16 22:17 Dose: Not Given [facility]othy[facility]ine [facility]) [facility] Last Admin: 11/23/16 08:15 Dose: 125 mcg Lisinopril (Zestril) 10 mg PO BID [facility] Last Admin: 11/23/16 09:09 Dose: 10 mg Magnesium Hydroxide (Milk Of Magnesia) 30 ml PO DAILYP PRN PRN Reason: Constipation Ondansetron HCl (Zofran) 4 mg IV Q4-6HP PRN PRN Reason: Nausea And Vomiting Oxybutynin Chloride (Ditropan Xl) 10 mg PO DAILY [facility] Last Admin: 11/23/16 09:09 Dose: 10 mg Oxybutynin Chloride (Ditropan) 5 mg PO HS [facility] Last Admin: 11/22/16 22:13 Dose: 5 mg Pantoprazole Sodium (Protonix) 40 mg PO QAMAC [facility] Last Admin: 11/23/16 08:15 Dose: 40 mg Refresh Optive Eye (Drops) 1 dose BOTH EYES PRN PRN PRN Reason: dry eyes Timolol Maleate 0.5% (Eye Drops) [facility] [place] Admin: 11/23/16 09:11 Dose: Not Given Prednisolone 1% (Ophth Drops) 1 dose BOTH EYES 3-4XD [facility] Polyethylene Glycol (Miralax) 17 gm PO DAILYP PRN PRN Reason: Constipation Last Admin: 11/23/16 09:11 Dose: 17 gm Potassium Chloride (Klor-Con) 40 meq PO DAILYP PRN PRN Reason: K+ < 3.5 Senna/Docusate Sodium (Senna Plus Tablet) 1 tab PO HS [facility] Last Admin: 11/22/16 22:34 Dose: 1 tab Sitagliptin Phosphate (Januvia) 100 mg PO DAILY [facility] Last Admin: 11/23/16 09:09 Dose: 100 mg Sodium Biphosphate/Sodium Phosphate (Fleets Adult) 1 dose [place] Q3-4DAYS PRN PRN Reason: Constipation Sodium Chloride (Saline Flush) 10 ml IV Q8 [facility] Last Admin: 11/23/16 04:42 Dose: 10 ml Trazodone HCl (Desyrel) 50 mg PO HSP PRN PRN Reason: Insomnia Medical - PN: A/P - Time Spent With Patient Total time spent is greater than 50% in coordination of care (as documented) at patient's floor/unit and/or counseling patient: 15 - 24 minutes (1) Hyperosmolar non-ketotic state in patient with type 2 diabetes mellitus Status: Acute Assessment and plan: * Complicated UTI-GNR /Karley- ontinue antibiotics/caspofungin. Renal ultrasound no obstruction but 6-7millimeter left renal stone. * Severe sepsis-on antibiotic coverage. worsening leukocytosis. And antifungals for karley coverage * right lower extremity pain and swelling-Doppler ultrasound negative for DVT * Hyper osmolar nonketotic state- Clinically resolved. adequate blood sugar control on Lantus. Continue diabetic education. Lower Lantus dose to 15 twice a day. * acute kidney injury- clinically improved * History of glaucoma on timolol/latanoprost * Hypothyroidism on thyroxine * hypertension on enalapril * History of CAD on Plavix * GERD on PPI plan * continue Lantus 15 twice daily. Patient will need to be discharged on Lantus in light of horrible outpatient blood sugar control on oral sulfonylurea. * caspofungin/Rocephin * Pre-existing medical condition management as above Current Visit: Yes Medical - PN: Qual - VTE Deep Vein Thrombosis/Pulmonary Embolism Present on Admission: No
[2016-11-23 14:50] LABS: Appearance,Urine CLEAR; Bacteria,Urine 0 /hpf (0); Bilirubin,Urine NEG (NEG); Color,Urine YELLOW0; Glucose,Urine (UA) 150 mg/dL (NEG); Leukocyte Esterase,Urine NEG /uL (NEG); Mucus,Urine FEW /hpf (0); Nitrate,Urine NEG (NEG); Protein,Urine NEG (NEG); Specific Gravity,Urine 1.015 (1.000-1.035); Urine Blood 0.03 mg/dL (<0.03); Urine RBC 1 /hpf (0-1); Urine Squamous Epithelial Cell 0 /hpf (0-4); Urine Transitional Epi Cells < 1 /hpf (0-2); Urine WBC 5 /hpf (0-4); Urobilinogen,Urine NEG (NEG)
[2016-11-23] MEDS: ACETAMINOPHEN 325 MG TABLET PO PRN (14:51)
[2016-11-23] MEDS: POLYVINYL ALCOHOL OPHTH DROPS 15ML BOTTLE OS SCH ×3 (17:21→21:54)
[2016-11-23] MEDS: OXYBUTYNIN CHLORIDE 5 MG TABLET PO SCH (21:04)
[2016-11-23] MEDS: SENNOSIDES/DOCUSATE SODIUM 1 TAB TABLET PO SCH (21:06)
[2016-11-23] MEDS: LATANOPROST OPHTH DROPS 2.5ML BOTTLE OU SCH (21:26)
[2016-11-24] MEDS: ACETAMINOPHEN 325 MG TABLET PO PRN ×4 (00:09→16:55)
[2016-11-24] MEDS: 0.9 % SODIUM CHLORIDE 10 ML SYRINGE IV SCH ×4 (00:32→22:03)
[2016-11-24 05:22] LABS: Mean Cell Volume 105.2 fL (80.0-100.0); Mean Corpuscular HGB Conc 33.1 g/dL (31.0-36.0); Mean Corpuscular Hemoglobin 34.8 pg (26.0-34.0); Platelet Count 212 K/mcL (140-440); RBC 3.06 M/mcL (4.00-5.20); Red Cell Distribution Width 12.7 % (11.5-14.5)
[2016-11-24] MEDS: POLYVINYL ALCOHOL OPHTH DROPS 15ML BOTTLE OS SCH ×9 (05:31→22:02)
[2016-11-24 06:03] LABS: ALT/SGPT 45 U/l (0-40); Albumin 2.9 gm/dL (3.2-5.2); Alkaline Phosphatase 109 U/L (39-117); Bilirubin,Direct < 0.2 mg/dL (0.0-0.3); Blood Urea Nitrogen 20 mg/dl (8-23); Gamma Glutamyl Transpeptidase 65 U/L (5-36); Magnesium 1.8 mg/dL (1.6-2.5); Phosphorous 4.3 mg/dL (2.7-4.5); Uric Acid 4.9 mg/dL (2.5-8.0)
[2016-11-24 06:59] LABS: Band Neutrophils % 1 % (0-10); Lymphocytes % 17 % (15-49); Macrocytosis 2+ (NONE SEEN); Monocytes % (Manual) 12 % (1-9); Platelet Estimate NORMAL (NORMAL); RBC Morphology ABNORM (NORMAL); Segmented Neutrophils % 68 % (38-78)
[2016-11-24] MEDS: LEVOTHYROXINE 125 MCG TABLET PO SCH (07:29)
[2016-11-24] MEDS: PANTOPRAZOLE 40 MG TABLET PO SCH (07:29)
[2016-11-24] MEDS: INSULIN LISPRO 1 UNIT/0.01 ML UNIT SQ SCH ×4 (08:12→21:55)
--- NOTE | 2016-11-24 08:59 | XRay Report ---
HISTORY: Reason for Exam:fever FINDINGS: The lungs are clear. The heart, mediastinum, birdie and pleura are normal. There has been no significant change since 07/11/14. IMPRESSION: Normal exam Interpreted and Authenticated by: Tobi Tellez 11/24/16
[2016-11-24] MEDS: LISINOPRIL 10 MG TABLET PO SCH ×2 (09:05→22:03)
[2016-11-24] MEDS: CLOPIDOGREL 75 MG TABLET PO SCH (09:05)
[2016-11-24] MEDS: GABAPENTIN 100 MG CAPSULE PO SCH ×2 (09:05→21:56)
[2016-11-24] MEDS: DOCUSATE SODIUM 100 MG CAPSULE PO SCH ×2 (09:05→21:56)
[2016-11-24] MEDS: FOLIC ACID 1 MG TABLET PO SCH (09:06)
[2016-11-24] MEDS: OXYBUTYNIN CHLORIDE 5 MG TAB.XL.24H PO SCH (09:06)
[2016-11-24] MEDS: valACYclovir 500 MG TABLET PO SCH (09:06)
[2016-11-24] MEDS: MULTIVIT,THER IRON,CA,FA & MIN 1 TABLET PO SCH (09:06)
[2016-11-24] MEDS: sitaGLIPtin 100 MG TABLET PO SCH (09:06)
[2016-11-24] MEDS: INSULIN GLARGINE, HUMAN 1 UNIT/0.01 ML SQ SCH ×2 (09:07→21:55)
[2016-11-24] MEDS: HEPARIN 5,000 UNIT/ML VIAL SQ SCH ×2 (09:07→21:56)
[2016-11-24] MEDS: cefTRIAXone 2 GM in DEXTROSE 5% IN WATER 50 ML IV SCH (09:07)
--- NOTE | 2016-11-24 09:56 | Internal Med Progress Note ---
Medical - PN: Subj Patient information: Note initiated : 11/24/16 at 9:54 am Service Date, if different from initiated Date: [] Patient: Teresa Nunn 86 y/o F admitted on 11/20/16 for Burning with urination. Chief Complaint: [] Interval history: 11/20- patient admitted with severe hyperglycemia along with complicated UTI. Resident of group daily assisted living. Significant weakness over the last few days and inability to care for self. Admitted as inpatient. started on insulin drip in ED. No evidence of DKA or hyperosmolar state along with pseudohyponatremia in light of elevated blood sugars. A1c over 11 indicative of poor outpatient control. Patient only on oral sulfonylurea 11/21-off insulin drip. patient agreeable to basal insulin. Start Lantus at 20 twice daily along with sliding scale and sitagliptin. continue physical therapy/ antibiotic coverage. urine significant pyuria with 482 WBCs. Check renal ultrasound to rule out obstructive uropathy. urine cultures negative to date. Improve renal function with creatinine down to 1. Scheduled outpatient diabetic education and self administration of insulin. 11/22-patient doing remarkably well on basal bolus insulin/sitagliptin. a.m. sugars 94. Lower Lantus to 15 twice a day. White count at 11,000. renal function normalized. Electrolytes within normal range. Urine culture revealed gram-negative carl. continue Rocephin. Possible discharge in 24-48 hours if clinically improved with outpatient insulin/antibiotics. Case management to arrange SNF transfer/home health based onPT recommendations 11/23- patient complaining of right lower extremity pain/tenderness. Ultrasound for DVT negative. [place] count at 14.8 [place] [id number]. Urine culture showing GNR /Morteza. Added caspofungin in light of interaction with fluconazole with Plavix. repeat UA. Hold discharge until white count downtrending and clinically improves. No overnight fever chills. patient appears weak and lethargic. continue physical therapy. Anticipate SNF transfer in 48 hours if clinically improved. 11/24-Patient seen examined, noted low grade temp overnight, she also reported that she has pain in the left shoulder, moderate to severe, worse with activity , did not allow to examine. No obvious external deformity or redness noted. She is able to tolerate po well, no cough, or chest pain.. The marko ent still is weak and needs ongoing therapy. Pertinent ROS: Denies headache, dizziness Denies chest pain, palpitations Denies cough or shortness of breath Denies abdominal pain, nausea or vomiting. left shoulder pain. - Constitutional Vitals: Vital Signs Temp Pulse Resp BP Pulse Ox 99.2 F 72 16 138/64 92 11/24/16 07:14 11/24/16 07:14 11/24/16 07:14 11/24/16 07:14 11/24/16 07:14 Period Temp Pulse Resp BP Sys/Cope Pulse Ox Last 24 Hr 98.2 F-100.4 F 72-80 16-22 108-138/56-68 92-98 Intake and Output 11/23/16 11/24/16 11/24/16 21:59 05:59 13:59 Intake Total 360 / 360 Output Total 150 / 150 700 / 700 Balance 210 / 210 -700 / -700 Weight 146 lb 8 oz Intake & Output: Intake & Output 11/23/16 11/24/16 11/24/16 21:59 05:59 13:59 Intake Total 360 / 360 Output Total 150 / 150 700 / 700 Balance 210 / 210 -700 / -700 Weight 146 lb 8 oz Intake: Oral 360 / 360 Output: Urine Catheter Amount 150 / 150 700 / 700 Other: Meal Lunch Percent of Meal Consumed 50% # Bowel Movements 1 Exam: Constitutional; Afebrile, cooperative, alert, not in distress. Eyes- No icterus, , No periorbital swelling Ears- Ext ear normal, hearing normal to conversation. Neck- Midline trachea, supple Respiratory system: Air Entry equal on both sides, No crackles or wheezing, no rhonchi. CVS- Rate rhythm regular, S1,S2 heard, no gallop, no rub. 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 left shoulder normal to inspection Medical - PN: Obj Da - Labs CBC & Chem 7: 11/24/16 03:55 11/24/16 03:55 Labs: Abnormal Lab Results 11/24/16 11/24/16 11/23/16 03:55 03:55 13:44 WBC 13.8 H RBC 3.06 L Hgb 10.6 L Hct 32.2 L MCV 105.2 H MCH 34.8 H Seg Neutrophils % Lymphocytes % Monocytes % (Manual) 12 H RBC Morphology Abnorm A Macrocytosis 2+ A Sodium 129 L Chloride 94 L Glucose 185 H GGT 65 H AST 43 H ALT 45 H Total Protein 5.8 L Albumin 2.9 L Triglycerides Urine Glucose (UA) 150 A Urine Occult Blood 0.03 A Urine WBC 5 H 11/23/16 11/23/16 11/22/16 03:55 03:55 03:25 WBC 14.8 H RBC 3.34 L Hgb 11.5 L Hct 35.3 L MCV 105.5 H MCH 34.4 H Seg Neutrophils % 82 H Lymphocytes % 9 L Monocytes % (Manual) RBC Morphology Abnorm A Macrocytosis 2+ A Sodium 132 L Chloride Glucose 126 H GGT AST ALT Total Protein 5.7 L Albumin 3.0 L Triglycerides 186 H Urine Glucose (UA) Urine Occult Blood Urine WBC 11/22/16 03:25 WBC 12.1 H RBC 3.43 L Hgb 11.7 L Hct 35.9 L MCV 104.8 H MCH 34.2 H Seg Neutrophils % Lymphocytes % Monocytes % (Manual) RBC Morphology Abnorm A Macrocytosis 1+ A Sodium Chloride Glucose GGT AST ALT Total Protein Albumin Triglycerides Urine Glucose (UA) Urine Occult Blood Urine WBC Meds: Medications Acetaminophen (Tylenol) 650 mg PO Q4-6HP PRN PRN Reason: PAIN/FEVER > 101 Last Admin: 11/24/16 05:53 Dose: 650 mg Artificial Tears (Artificial Tears Ophth Drops) 1 gtt OS Q2HWA [facility] Last Admin: 11/24/16 09:08 Dose: 1 gtt Bisacodyl (Dulcolax) 10 mg AR Q2-3DAYS PRN PRN Reason: Constipation Last Admin: 11/23/16 10:33 Dose: 10 mg Clopidogrel Bisulfate (Plavix) 75 mg PO DAILY [facility] Last Admin: 11/24/16 09:05 Dose: 75 mg Dextrose (Dextrose 50%) 0 ml IV UD PRN PRN Reason: Hypoglycemia Diagnostic Test (Pha) (Accu-Chek) 1 each FS ACHS [facility] Last Admin: 11/24/16 07:12 Dose: 1 each Docusate Sodium (Colace) 100 mg PO BID [facility] Last Admin: 11/24/16 09:05 Dose: 100 mg Folic Acid (Folic Acid) 1 mg PO DAILY [facility] Last Admin: 11/24/16 09:06 Dose: 1 mg Gabapentin (Neurontin) 100 mg PO BID [facility] Last Admin: 11/24/16 09:05 Dose: 100 mg Heparin Sodium (Porcine) (Heparin) 5,000 unit SQ Q12 [facility] Last Admin: 11/24/16 09:07 Dose: 5,000 unit Hydromorphone HCl (Dilaudid) 0.5 mg IV Q6HP PRN PRN Reason: Pain Magnesium Sulfate (Magnesium Sulfate) 2 gm in 50 mls @ 50 mls/hr IV UD PRN PRN Reason: MG = or < 1.7 Acetaminophen (Ofirmev) 1,000 mg in 100 mls @ 200 mls/hr IV Q6HP PRN PRN Reason: PAIN/FEVER > 101 Ceftriaxone Sodium 2 gm/ (Dextrose) 50 mls @ 100 mls/hr IV Q24H [facility] Last Admin: 11/24/16 09:07 Dose: 100 mls/hr Caspofungin 50 mg/ Sodium (Chloride) 250 mls @ 250 mls/hr IV Q24H [facility] Stop: 11/27/16 09:59 Insulin Glargine (Lantus) 15 unit SQ BID [facility] Last Admin: 11/24/16 09:07 Dose: 15 unit Insulin Human Lispro (Humalog) 0 unit SQ ACHS [facility] PRN Reason: Protocol Last Admin: 11/24/16 08:12 Dose: 4 unit Iron Carb/Multivit/Party Plan Dealer/Folic Acid (Multivitamin W/Minerals) 1 tab PO DAILY [facility] Last Admin: 11/24/16 09:06 Dose: 1 tab Latanoprost (Xalatan Ophth Drops) 1 gtt OU HS [facility] Last Admin: 11/23/16 21:26 Dose: Not Given Levothyroxine Sodium (Synthroid) 125 mcg PO QAMAC [facility] Last Admin: 11/24/16 07:29 Dose: 125 mcg Lisinopril (Zestril) 10 mg PO BID [facility] Last Admin: 11/24/16 09:05 Dose: 10 mg Magnesium Hydroxide (Milk Of Magnesia) 30 ml PO DAILYP PRN PRN Reason: Constipation Ondansetron HCl (Zofran) 4 mg IV Q4-6HP PRN PRN Reason: Nausea And Vomiting Oxybutynin Chloride (Ditropan Xl) 10 mg PO DAILY [facility] Last Admin: 11/24/16 09:06 Dose: 10 mg Oxybutynin Chloride (Ditropan) 5 mg PO HS [facility] Last Admin: 11/23/16 21:04 Dose: 5 mg Pantoprazole Sodium (Protonix) 40 mg PO QAMAC [facility] Last Admin: 11/24/16 07:29 Dose: 40 mg Refresh Optive Eye (Drops) 1 dose BOTH EYES PRN PRN PRN Reason: dry eyes Timolol Maleate 0.5% (Eye Drops) 1 dose LEFT EYE QAM [facility] Last Admin: 11/24/16 09:09 Dose: 1 dose Prednisolone 1% (Ophth Drops) 1 dose BOTH EYES 5XD [facility] Last Admin: 11/24/16 09:08 Dose: 1 dose Polyethylene Glycol (Miralax) 17 gm PO DAILYP PRN PRN Reason: Constipation Last Admin: 11/23/16 09:11 Dose: 17 gm Potassium Chloride (Klor-Con) 40 meq PO DAILYP PRN PRN Reason: K+ < 3.5 Senna/Docusate Sodium (Senna Plus Tablet) 1 tab PO HS [facility] Last Admin: 11/23/16 21:06 Dose: 1 tab Sitagliptin Phosphate (Januvia) 100 mg PO DAILY [facility] Last Admin: 11/24/16 09:06 Dose: 100 mg Sodium Biphosphate/Sodium Phosphate (Fleets Adult) 1 dose AR Q3-4DAYS PRN PRN Reason: Constipation Last Admin: 11/23/16 17:31 Dose: 1 dose Sodium Chloride (Saline Flush) 10 ml IV Q8 [facility] Last Admin: 11/24/16 05:58 Dose: 10 ml Trazodone HCl (Desyrel) 50 mg PO HSP PRN PRN Reason: Insomnia Valacyclovir HCl (Valtrex) 1,000 mg PO DAILY [facility] Last Admin: 11/24/16 09:06 Dose: 1,000 mg Medical - PN: A/P - Time Spent With Patient Total time spent is greater than 50% in coordination of care (as documented) at patient's floor/unit and/or counseling patient: (1) Fever Status: Acute Current Visit: Yes (2) Left shoulder pain Status: Acute Current Visit: Yes (3) Hyperosmolar non-ketotic state in patient with type 2 diabetes mellitus Status: Acute Current Visit: Yes (4) Urinary tract infection Status: Acute Current Visit: Yes - Narrative A/P Narrative: UTI- due to morteza- On caspofungin, c ontinfadia same, d/c oates today Hyperglycemia- Glucose trending up again, increase dose of lantus from 15 bid to 18 bid, on 20mg bid in the past it seems her glucose had dropped to 90's. Fever- source? DVT neg, likely from UTI, wbc improving, will get blood cultures , X ray chest done this AM is clear. Shoulder pain, left , not sure if just OA, get X ray Diet diabetic Activity as tolerated Dispo- To SNF once afebrile, and improving clinically. Medical - PN: Qual - VTE Deep Vein Thrombosis/Pulmonary Embolism Present on Admission: No
[2016-11-24] MEDS: CASPOFUNGIN ACETATE 50 MG in 0.9 % SODIUM CHLORIDE 250 ML IV SCH (10:41)
--- NOTE | 2016-11-24 11:03 | XRay Report ---
HISTORY: Reason for Exam:shoulder pain FINDINGS: No fracture or subluxation are present. There is minor arthritis at the glenohumeral joint and acromioclavicular joint. No abnormal soft tissue calcification is present. IMPRESSION: Very mild arthritis but otherwise normal shoulder Interpreted and Authenticated by: Tobi Tellez 11/24/16
[2016-11-24] MEDS: OXYBUTYNIN CHLORIDE 5 MG TABLET PO SCH (21:56)
[2016-11-24] MEDS: SENNOSIDES/DOCUSATE SODIUM 1 TAB TABLET PO SCH (21:56)
[2016-11-24] MEDS: LATANOPROST OPHTH DROPS 2.5ML BOTTLE OU SCH (22:03)
[2016-11-25] MEDS: POLYVINYL ALCOHOL OPHTH DROPS 15ML BOTTLE OS SCH ×8 (06:09→21:43)
[2016-11-25 06:10] LABS: ALT/SGPT 34 U/l (0-40); Albumin 2.8 gm/dL (3.2-5.2); Albumin/Globulin Ratio 0.9 (1.0-2.3); Alkaline Phosphatase 89 U/L (39-117); Bilirubin,Direct < 0.2 mg/dL (0.0-0.3); Blood Urea Nitrogen 21 mg/dl (8-23); Gamma Glutamyl Transpeptidase 48 U/L (5-36); Magnesium 1.8 mg/dL (1.6-2.5); Phosphorous 3.5 mg/dL (2.7-4.5); Uric Acid 4.8 mg/dL (2.5-8.0)
[2016-11-25] MEDS: 0.9 % SODIUM CHLORIDE 10 ML SYRINGE IV SCH ×2 (06:10→12:07)
[2016-11-25] MEDS: INSULIN GLARGINE, HUMAN 1 UNIT/0.01 ML SQ SCH ×3 (06:27→21:42)
[2016-11-25] MEDS: INSULIN LISPRO 1 UNIT/0.01 ML UNIT SQ SCH ×4 (07:07→21:42)
[2016-11-25] MEDS: PANTOPRAZOLE 40 MG TABLET PO SCH (07:15)
[2016-11-25] MEDS: LEVOTHYROXINE 125 MCG TABLET PO SCH (07:16)
[2016-11-25 07:20] LABS: Mean Corpuscular HGB Conc 34.2 g/dL (31.0-36.0); Mean Corpuscular Hemoglobin 34.6 pg (26.0-34.0); Platelet Count 175 K/mcL (140-440); RBC 3.28 M/mcL (4.00-5.20); Red Cell Distribution Width 11.8 % (11.5-14.5)
[2016-11-25 07:21] LABS: Eosinophils % (Manual) 1 % (0-7); Lymphocytes % 16 % (15-49); Macrocytosis 1+ (NONE SEEN); Monocytes % (Manual) 9 % (1-9); Platelet Estimate NORMAL (NORMAL); RBC Morphology ABNORM (NORMAL); Segmented Neutrophils % 74 % (38-78)
[2016-11-25] MEDS: cefTRIAXone 2 GM in DEXTROSE 5% IN WATER 50 ML IV SCH (08:24)
[2016-11-25] MEDS: CLOPIDOGREL 75 MG TABLET PO SCH (08:25)
[2016-11-25] MEDS: MULTIVIT,THER IRON,CA,FA & MIN 1 TABLET PO SCH (08:25)
[2016-11-25] MEDS: OXYBUTYNIN CHLORIDE 5 MG TAB.XL.24H PO SCH (08:25)
[2016-11-25] MEDS: FOLIC ACID 1 MG TABLET PO SCH (08:25)
[2016-11-25] MEDS: GABAPENTIN 100 MG CAPSULE PO SCH ×2 (08:25→21:42)
[2016-11-25] MEDS: DOCUSATE SODIUM 100 MG CAPSULE PO SCH ×2 (08:25→21:42)
[2016-11-25] MEDS: sitaGLIPtin 100 MG TABLET PO SCH (08:25)
[2016-11-25] MEDS: LISINOPRIL 10 MG TABLET PO SCH ×2 (08:25→21:41)
[2016-11-25] MEDS: HEPARIN 5,000 UNIT/ML VIAL SQ SCH ×2 (08:25→21:42)
[2016-11-25] MEDS: valACYclovir 500 MG TABLET PO SCH (08:26)
[2016-11-25] MEDS: CASPOFUNGIN ACETATE 50 MG in 0.9 % SODIUM CHLORIDE 250 ML IV SCH (09:33)
[2016-11-25] MEDS ORDERED: PHENAZOPYRIDINE 200 MG TABLET PO PRN (14:46)
--- NOTE | 2016-11-25 14:46 | Internal Med Progress Note ---
Medical - PN: Subj Patient information: Note initiated : 11/25/16 at 2:43 pm Service Date, if different from initiated Date: [] Patient: Teresa Nunn 86 y/o F admitted on 11/20/16 for Burning with urination. Chief Complaint: [] Interval history: The patient seen examined, no acute overnight events was constipated yesterday, responded well to rectal suppositary notes has increased frequency of urination but besides this is overall doing ok sitting comfortably in the chair, tolerating po well, No longer febrile. Pertinent ROS: Denies headache, dizziness Denies chest pain, palpitations Denies cough or shortness of breath Denies abdominal pain, nausea or vomiting. notes increased frequency of urination. - Constitutional Vitals: Vital Signs Temp Pulse Resp BP Pulse Ox 98.3 F 70 16 128/70 96 11/25/16 11:43 11/25/16 07:25 11/25/16 11:43 11/25/16 11:43 11/25/16 11:43 Period Temp Pulse Resp BP Sys/Cope Pulse Ox Last 24 Hr 97.0 F-99.0 F 68-78 16-20 114-164/58-72 94-98 Intake and Output 11/25/16 11/25/16 11/25/16 05:59 13:59 21:59 Intake Total 500 / 500 520 / 520 Output Total 350 / 350 3 / 3 Balance 150 / 150 517 / 517 Intake & Output: Intake & Output 11/25/16 11/25/16 11/25/16 05:59 13:59 21:59 Intake Total 500 / 500 520 / 520 Output Total 350 / 350 3 / 3 Balance 150 / 150 517 / 517 Intake: IV 300 / 300 Sodium Chloride 0.9% 250 250 / 250 ml @ 250 mls/hr IV Q24H TOBIN with Cancidas 50 mg Rx#:[id number] Dextrose 5% in Water 50 50 / 50 ml @ 100 mls/hr IV Q24H TOBIN with Rocephin 2 gm Rx #:[id number] Oral 500 / 500 220 / 220 Output: Void Amount 350 / 350 # of times incontinent of 3 / 3 urine Other: Meal Lunch Percent of Meal Consumed 50% Feeding Ability Independent # Voids 1 # Bowel Movements 1 Exam: Constitutional; Afebrile, cooperative, alert, not in distress, sitting comfortably in her chair. Eyes- No icterus, Pupils equal, reactive, No periorbital swelling Ears- Ext ear normal, hearing normal to conversation. Neck- Midline trachea, supple Respiratory system: Air Entry equal on both sides, No crackles or wheezing, no rhonchi. 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 Medical - PN: Obj Da - Labs CBC & Chem 7: 11/25/16 04:25 11/25/16 04:25 Labs: Abnormal Lab Results 11/25/16 11/25/16 11/24/16 04:25 04:25 03:55 WBC 12.8 H RBC 3.28 L Hgb 11.3 L Hct 33.1 L MCV 101.0 H MCH 34.6 H Seg Neutrophils % Lymphocytes % Monocytes % (Manual) RBC Morphology Abnorm A Macrocytosis 1+ A Sodium 129 L Chloride 94 L Glucose 171 H 185 H GGT 48 H 65 H AST 43 H ALT 45 H Total Protein 5.8 L Albumin 2.8 L 2.9 L Albumin/Globulin Ratio 0.9 L Urine Glucose (UA) Urine Occult Blood Urine WBC 11/24/16 11/23/16 11/23/16 03:55 13:44 03:55 WBC 13.8 H RBC 3.06 L Hgb 10.6 L Hct 32.2 L MCV 105.2 H MCH 34.8 H Seg Neutrophils % Lymphocytes % Monocytes % (Manual) 12 H RBC Morphology Abnorm A Macrocytosis 2+ A Sodium 132 L Chloride Glucose 126 H GGT AST ALT Total Protein Albumin Albumin/Globulin Ratio Urine Glucose (UA) 150 A Urine Occult Blood 0.03 A Urine WBC 5 H 11/23/16 03:55 WBC 14.8 H RBC 3.34 L Hgb 11.5 L Hct 35.3 L MCV 105.5 H MCH 34.4 H Seg Neutrophils % 82 H Lymphocytes % 9 L Monocytes % (Manual) RBC Morphology Abnorm A Macrocytosis 2+ A Sodium Chloride Glucose GGT AST ALT Total Protein Albumin Albumin/Globulin Ratio Urine Glucose (UA) Urine Occult Blood Urine WBC Meds: Medications Acetaminophen (Tylenol) 650 mg PO Q4-6HP PRN PRN Reason: PAIN/FEVER > 101 Last Admin: 11/24/16 16:55 Dose: 650 mg Artificial Tears (Artificial Tears Ophth Drops) 1 gtt OS Q2HWA [facility] Last Admin: 11/25/16 14:41 Dose: 1 gtt Bisacodyl (Dulcolax) 10 mg AL Q2-3DAYS PRN PRN Reason: Constipation Last Admin: 11/23/16 10:33 Dose: 10 mg Clopidogrel Bisulfate (Plavix) 75 mg PO DAILY [facility] Last Admin: 11/25/16 08:25 Dose: 75 mg Dextrose (Dextrose 50%) 0 ml IV UD PRN PRN Reason: Hypoglycemia Diagnostic Test (Pha) (Accu-Chek) 1 each FS ACHS [facility] Last Admin: 11/25/16 11:31 Dose: 1 each Docusate Sodium (Colace) 100 mg PO BID [facility] Last Admin: 11/25/16 08:25 Dose: 100 mg Folic Acid (Folic Acid) 1 mg PO DAILY [facility] Last Admin: 11/25/16 08:25 Dose: 1 mg Gabapentin (Neurontin) 100 mg PO BID [facility] Last Admin: 11/25/16 08:25 Dose: 100 mg Heparin Sodium (Porcine) (Heparin) 5,000 unit SQ Q12 [facility] Last Admin: 11/25/16 08:25 Dose: 5,000 unit Hydromorphone HCl (Dilaudid) 0.5 mg IV Q6HP PRN PRN Reason: Pain Magnesium Sulfate (Magnesium Sulfate) 2 gm in 50 mls @ 50 mls/hr IV UD PRN PRN Reason: MG = or < 1.7 Acetaminophen (Ofirmev) 1,000 mg in 100 mls @ 200 mls/hr IV Q6HP PRN PRN Reason: PAIN/FEVER > 101 Ceftriaxone Sodium 2 gm/ (Dextrose) 50 mls @ 100 mls/hr IV Q24H [facility] Last Infusion: 11/25/16 09:33 Dose: Infused Caspofungin 50 mg/ Sodium (Chloride) 250 mls @ 250 mls/hr IV Q24H [facility] Stop: 11/27/16 09:59 Last Infusion: 11/25/16 10:54 Dose: Infused Insulin Glargine (Lantus) 24 unit SQ BID [facility] Insulin Human Lispro (Humalog) 0 unit SQ ACHS [facility] PRN Reason: Protocol Last Admin: 11/25/16 11:42 Dose: 4 unit Iron Carb/Multivit/[place]/Folic Acid (Multivitamin W/Minerals) 1 tab PO DAILY [facility] Last Admin: 11/25/16 08:25 Dose: 1 tab Latanoprost (Xalatan Ophth Drops) 1 gtt OU HS [facility] Last Admin: 11/24/16 22:03 Dose: Not Given [facility]othy[facility]ine [facility] ([facility]) [facility] Last Admin: 11/25/16 07:16 Dose: 125 mcg Lisinopril (Zestril) 10 mg PO BID [facility] Last Admin: 11/25/16 08:25 Dose: 10 mg Magnesium Hydroxide (Milk Of Magnesia) 30 ml PO DAILYP PRN PRN Reason: Constipation Ondansetron HCl (Zofran) 4 mg IV Q4-6HP PRN PRN Reason: Nausea And Vomiting Oxybutynin Chloride (Ditropan Xl) 10 mg PO DAILY [facility] Last Admin: 11/25/16 08:25 Dose: 10 mg Oxybutynin Chloride (Ditropan) 5 mg PO [facility] Last Admin: 11/24/16 21:56 Dose: 5 mg Pantoprazole Sodium (Protonix) [facility] Last Admin: 11/25/16 07:15 Dose: 40 mg Refresh Optive Eye (Drops) 1 dose BOTH EYES PRN PRN PRN Reason: dry eyes Timolol Maleate 0.5% (Eye Drops) 1 [facility] Last Admin: 11/25/16 08:26 Dose: 1 dose Prednisolone 1% (Ophth Drops) 1 dose OS TID [facility] Last Admin: 11/25/16 14:41 Dose: 1 dose Polyethylene Glycol (Miralax) 17 gm PO DAILYP PRN PRN Reason: Constipation Last Admin: 11/23/16 09:11 Dose: 17 gm Potassium Chloride (Klor-Con) 40 meq PO DAILYP PRN PRN Reason: K+ < 3.5 Senna/Docusate Sodium (Senna Plus Tablet) 1 tab PO [facility] Last Admin: 11/24/16 21:56 Dose: 1 tab Sitagliptin Phosphate (Januvia) 100 mg PO DAILY [facility] Last Admin: 11/25/16 08:25 Dose: 100 mg Sodium Biphosphate/Sodium Phosphate (Fleets Adult) 1 dose AL Q3-4DAYS PRN PRN Reason: Constipation Last Admin: 11/23/16 17:31 Dose: 1 dose Sodium Chloride (Saline Flush) 10 ml IV Q8 [facility] Last Admin: 11/25/16 12:07 Dose: 10 ml Trazodone HCl (Desyrel) 50 mg PO HSP PRN PRN Reason: Insomnia Valacyclovir HCl (Valtrex) 1,000 mg PO DAILY [facility] Last Admin: 11/25/16 08:26 Dose: 1,000 mg Medical - PN: A/P - Time Spent With Patient Total time spent is greater than 50% in coordination of care (as documented) at patient's floor/unit and/or counseling patient: (1) Fever Status: Acute Current Visit: Yes (2) Left shoulder pain Status: Acute Current Visit: Yes (3) Hyperosmolar non-ketotic state in patient with type 2 diabetes mellitus Status: Acute Current Visit: Yes (4) Urinary tract infection Status: Acute Current Visit: Yes - Narrative A/P Narrative: The patient has remained afebrile oates d/c but patient has urinary symptoms, start on phenzopyridone for symptomatic relief continue IV caspofungin for treatment of morteza. DM- Glucose levels still high, incresae dose of lantus and sliding scale insulin. Patients po intake is improving. Shoulder x ray is neg, prn pain medications. Continue PT Anticipate d/c on Sunday. Medical - PN: Qual - VTE Deep Vein Thrombosis/Pulmonary Embolism Present on Admission: No
[2016-11-25] MEDS: OXYBUTYNIN CHLORIDE 5 MG TABLET PO SCH (21:42)
[2016-11-25] MEDS: SENNOSIDES/DOCUSATE SODIUM 1 TAB TABLET PO SCH (21:42)
[2016-11-25] MEDS: LATANOPROST OPHTH DROPS 2.5ML BOTTLE OU SCH (21:43)
[2016-11-26] MEDS: 0.9 % SODIUM CHLORIDE 10 ML SYRINGE IV SCH ×4 (01:52→23:45)
[2016-11-26] MEDS: POLYVINYL ALCOHOL OPHTH DROPS 15ML BOTTLE OS SCH ×10 (01:52→23:45)
[2016-11-26 06:42] LABS: Basophils # (Auto) 0.1 K/mcL (0.0-0.3); Basophils % (Auto) 0.9 % (0.0-2.0); Eosinophils # (Auto) 0.3 K/mcL (0.0-0.7); Eosinophils % (Auto) 4.5 % (0.0-7.0); Granulocytes % (Auto) 57.2 % (38.0-78.0); Lymphocytes # (Auto) 1.9 K/mcL (1.5-4.8); Mean Cell Volume 101.7 fL (80.0-100.0); Mean Corpuscular HGB Conc 33.9 g/dL (31.0-36.0); Mean Corpuscular Hemoglobin 34.5 pg (26.0-34.0); Monocytes # (Auto) 0.7 K/mcL (0.1-0.9); Monocytes % (Auto) 10.4 % (1.0-9.0); Platelet Count 216 K/mcL (140-440); RBC 3.29 M/mcL (4.00-5.20); Red Cell Distribution Width 11.8 % (11.5-14.5)
[2016-11-26] MEDS: PANTOPRAZOLE 40 MG TABLET PO SCH ×2 (06:54→06:56)
[2016-11-26] MEDS: LEVOTHYROXINE 125 MCG TABLET PO SCH (06:55)
[2016-11-26 07:12] LABS: ALT/SGPT 30 U/l (0-40); Albumin 2.9 gm/dL (3.2-5.2); Albumin/Globulin Ratio 0.9 (1.0-2.3); Alkaline Phosphatase 78 U/L (39-117); Bilirubin,Direct < 0.2 mg/dL (0.0-0.3); Blood Urea Nitrogen 25 mg/dl (8-23); Gamma Glutamyl Transpeptidase 43 U/L (5-36); Magnesium 1.8 mg/dL (1.6-2.5); Phosphorous 4.1 mg/dL (2.7-4.5)
[2016-11-26] MEDS: valACYclovir 500 MG TABLET PO SCH (10:21)
[2016-11-26] MEDS: LISINOPRIL 10 MG TABLET PO SCH ×2 (10:22→20:49)
[2016-11-26] MEDS: cefTRIAXone 2 GM in DEXTROSE 5% IN WATER 50 ML IV SCH (10:22)
[2016-11-26] MEDS: CLOPIDOGREL 75 MG TABLET PO SCH (10:22)
[2016-11-26] MEDS: GABAPENTIN 100 MG CAPSULE PO SCH ×2 (10:23→20:49)
[2016-11-26] MEDS: FOLIC ACID 1 MG TABLET PO SCH (10:23)
[2016-11-26] MEDS: MULTIVIT,THER IRON,CA,FA & MIN 1 TABLET PO SCH (10:23)
[2016-11-26] MEDS: sitaGLIPtin 100 MG TABLET PO SCH (10:23)
[2016-11-26] MEDS: DOCUSATE SODIUM 100 MG CAPSULE PO SCH ×2 (10:24→20:49)
[2016-11-26] MEDS: CASPOFUNGIN ACETATE 50 MG in 0.9 % SODIUM CHLORIDE 250 ML IV SCH (10:24)
[2016-11-26] MEDS: HEPARIN 5,000 UNIT/ML VIAL SQ SCH ×2 (10:26→20:47)
[2016-11-26] MEDS: INSULIN LISPRO 1 UNIT/0.01 ML UNIT SQ SCH ×4 (10:45→20:48)
[2016-11-26] MEDS: INSULIN GLARGINE, HUMAN 1 UNIT/0.01 ML SQ SCH ×2 (11:30→20:48)
[2016-11-26] MEDS: OXYBUTYNIN CHLORIDE 5 MG TAB.XL.24H PO SCH (11:30)
--- NOTE | 2016-11-26 13:47 | Internal Med Progress Note ---
Medical - PN: Subj Patient information: Note initiated : 11/26/16 at 1:44 pm Service Date, if different from initiated Date: [] Patient: Teresa Nunn 86 y/o F admitted on 11/20/16 for Burning with urination. Chief Complaint: [] Interval history: Pt seen examined, no acute complaints, some pain in the legs which is chr issue slept ok last night no longer febrile labs show normal wbc pt tolerating po well Pertinent ROS: Denies headache, dizziness Denies chest pain, palpitations Denies cough or shortness of breath Denies abdominal pain, nausea or vomiting. - Constitutional Vitals: Vital Signs Temp Pulse Resp BP Pulse Ox 97.5 F L 75 16 167/56 96 11/26/16 12:51 11/26/16 04:00 11/26/16 12:51 11/26/16 12:51 11/26/16 12:51 Period Temp Pulse Resp BP Sys/Cope Pulse Ox Last 24 Hr 97.0 F-98.4 F 60-75 16-20 103-167/56-73 96-100 Intake and Output 11/25/16 11/26/16 11/26/16 21:59 05:59 13:59 Intake Total 1040 / 1040 350 / 350 240 / 240 Output Total 2 / 2 2 / 2 250 / 250 Balance 1038 / 1038 348 / 348 -10 / -10 Weight 141 lb 8 oz Intake & Output: Intake & Output 11/25/16 11/26/16 11/26/16 21:59 05:59 13:59 Intake Total 1040 / 1040 350 / 350 240 / 240 Output Total 2 / 2 2 / 2 250 / 250 Balance 1038 / 1038 348 / 348 -10 / -10 Weight 141 lb 8 oz Intake: Oral 1040 / 1040 350 / 350 240 / 240 Output: Void Amount 250 / 250 # of times incontinent of 2 / 2 2 / 2 urine Other: Meal Dinner Percent of Meal Consumed 100% Feeding Ability Assist with Tray Set Up # Bowel Movements 1 Exam: Constitutional; Afebrile, cooperative, alert, not in distress. Eyes- No icterus,No periorbital swelling Ears- Ext ear normal, hard of hearing.. Neck- Midline trachea, supple Respiratory system: Air Entry equal on both sides, No crackles or wheezing, no rhonchi. CVS- Rate rhythm regular, S1,S2 heard, no gallop, no rub. 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 Medical - PN: Obj Da - Labs CBC & Chem 7: 11/26/16 05:20 11/26/16 05:20 Labs: Abnormal Lab Results 11/26/16 11/26/16 11/25/16 05:20 05:20 04:25 WBC RBC 3.29 L Hgb 11.4 L Hct 33.5 L MCV 101.7 H MCH 34.5 H [place] % (Auto) 10.4 H Monocytes % (Manual) RBC Morphology Macrocytosis Sodium 131 L Chloride BUN 25 H Glucose 129 H 171 H GGT 43 H 48 H AST ALT Total Protein Albumin 2.9 L 2.8 L Albumin/Globulin Ratio 0.9 L 0.9 L Urine Glucose (UA) Urine Occult Blood Urine WBC 11/25/16 11/24/16 11/24/16 04:25 03:55 03:55 WBC 12.8 H 13.8 H RBC 3.28 L 3.06 L Hgb 11.3 L 10.6 L Hct 33.1 L 32.2 L MCV 101.0 H 105.2 H MCH 34.6 H 34.8 H [place] % (Auto) Monocytes % (Manual) 12 H RBC Morphology Abnorm A Abnorm A Macrocytosis 1+ A 2+ A Sodium 129 L Chloride 94 L BUN Glucose 185 H GGT 65 H AST 43 H ALT 45 H Total Protein 5.8 L Albumin 2.9 L Albumin/Globulin Ratio Urine Glucose (UA) Urine Occult Blood Urine WBC 11/23/16 13:44 WBC RBC Hgb Hct MCV MCH [place] % (Auto) Monocytes % (Manual) RBC Morphology Macrocytosis Sodium Chloride BUN Glucose GGT AST ALT Total Protein Albumin Albumin/Globulin Ratio Urine Glucose (UA) 150 A Urine Occult Blood 0.03 A Urine WBC 5 H Meds: Medications Acetaminophen (Tylenol) 650 mg PO Q4-6HP PRN PRN Reason: PAIN/FEVER > 101 Last Admin: 11/24/16 16:55 Dose: 650 mg Artificial Tears (Artificial Tears Ophth Drops) 1 gtt OS Q2HWA [facility] Last Admin: 11/26/16 12:39 Dose: 1 gtt Bisacodyl (Dulcolax) 10 mg AL Q2-3DAYS PRN PRN Reason: Constipation Last Admin: 11/23/16 10:33 Dose: 10 mg Clopidogrel Bisulfate (Plavix) 75 mg PO DAILY [facility] Last Admin: 11/26/16 10:22 Dose: 75 mg Dextrose (Dextrose 50%) 0 ml IV UD PRN PRN Reason: Hypoglycemia Diagnostic Test (Pha) (Accu-Chek) 1 each FS ACHS [facility] Last Admin: 11/26/16 12:38 Dose: 1 each Docusate Sodium (Colace) 100 mg PO BID [facility] Last Admin: 11/26/16 10:24 Dose: Not Given Folic Acid (Folic Acid) 1 mg PO DAILY [facility] Last Admin: 11/26/16 10:23 Dose: 1 mg Gabapentin (Neurontin) 100 mg PO BID [facility] Last Admin: 11/26/16 10:23 Dose: 100 mg Heparin Sodium (Porcine) (Heparin) 5,000 unit SQ Q12 [facility] Last Admin: 11/26/16 10:26 Dose: 5,000 unit Hydromorphone HCl (Dilaudid) 0.5 mg IV Q6HP PRN PRN Reason: Pain Magnesium Sulfate (Magnesium Sulfate) 2 gm in 50 mls @ 50 mls/hr IV UD PRN PRN Reason: MG = or < 1.7 Acetaminophen (Ofirmev) 1,000 mg in 100 mls @ 200 mls/hr IV Q6HP PRN PRN Reason: PAIN/FEVER > 101 Ceftriaxone Sodium 2 gm/ (Dextrose) 50 mls @ 100 mls/hr IV Q24H [facility] Last Admin: 11/26/16 10:22 Dose: 100 mls/hr Caspofungin 50 mg/ Sodium (Chloride) 250 mls @ 250 mls/hr IV Q24H [facility] Stop: 11/27/16 09:59 Last Admin: 11/26/16 10:24 Dose: 250 mls/hr Insulin Glargine (Lantus) 24 unit SQ BID [facility] Last Admin: 11/26/16 11:30 Dose: 24 unit Insulin Human Lispro (Humalog) 0 unit SQ ACHS [facility] PRN Reason: Protocol Last Admin: 11/26/16 13:32 Dose: 6 unit Iron Carb/Multivit/Sales Project Administrator/Folic Acid (Multivitamin W/Minerals) 1 tab PO DAILY [facility] Last Admin: 11/26/16 10:23 Dose: 1 tab Latanoprost (Xalatan Ophth Drops) 1 gtt OU [facility] Last Admin: 11/25/16 21:43 Dose: Not Given Levothyroxine Sodium (Synthroid) [facility] Last Admin: 11/26/16 06:55 Dose: 125 mcg Lisinopril (Zestril) 10 mg PO BID [facility] Last Admin: 11/26/16 10:22 Dose: 10 mg Magnesium Hydroxide (Milk Of Magnesia) 30 ml PO DAILYP PRN PRN Reason: Constipation Ondansetron HCl (Zofran) 4 mg IV Q4-6HP PRN PRN Reason: Nausea And Vomiting Oxybutynin Chloride (Ditropan Xl) 10 mg PO DAILY [facility] Last Admin: 11/26/16 11:30 Dose: 10 mg Oxybutynin Chloride (Ditropan) 5 mg PO [facility] Last Admin: 11/25/16 21:42 Dose: 5 mg Pantoprazole Sodium (Protonix) 40 [facility] Last Admin: 11/26/16 06:56 Dose: 40 mg Refresh Optive Eye (Drops) 1 dose BOTH EYES PRN PRN PRN Reason: dry eyes Timolol Maleate 0.5% (Eye Drops) 1 [facility] Last Admin: 11/26/16 10:26 Dose: 1 dose Prednisolone 1% (Ophth Drops) 1 dose OS TID [facility] Last Admin: 11/26/16 10:27 Dose: 1 dose Phenazopyridine HCl (Pyridium) 200 mg PO BIDP PRN PRN Reason: PAINFUL URINATION Stop: 11/30/16 14:47 Polyethylene Glycol (Miralax) 17 gm PO DAILYP PRN PRN Reason: Constipation Last Admin: 11/23/16 09:11 Dose: 17 gm Potassium Chloride (Klor-Con) 40 meq PO DAILYP PRN PRN Reason: K+ < 3.5 Senna/Docusate Sodium (Senna Plus Tablet) 1 tab PO [facility] Last Admin: 11/25/16 21:42 Dose: 1 tab Sitagliptin Phosphate (Januvia) 100 mg PO DAILY [facility] Last Admin: 11/26/16 10:23 Dose: 100 mg Sodium Biphosphate/Sodium Phosphate (Fleets Adult) 1 dose AL Q3-4DAYS PRN PRN Reason: Constipation Last Admin: 11/23/16 17:31 Dose: 1 dose Sodium Chloride (Saline Flush) 10 ml IV Q8 [facility] Last Admin: 11/26/16 05:09 Dose: 10 ml Trazodone HCl (Desyrel) 50 mg PO HSP PRN PRN Reason: Insomnia Valacyclovir HCl (Valtrex) 1,000 mg PO DAILY [facility] Last Admin: 11/26/16 10:21 Dose: 1,000 mg Medical - PN: A/P - Time Spent With Patient Total time spent is greater than 50% in coordination of care (as documented) at patient's floor/unit and/or counseling patient: (1) Hyperosmolar non-ketotic state in patient with type 2 diabetes mellitus Status: Acute Current Visit: Yes (2) Urinary tract infection Status: Acute Current Visit: Yes - Narrative A/P Narrative: Dm uncontrolled, waxing and waning glucose continue lantus for now continue sitaglipitin add glipizide 5mg bid Ac before meals as was her home medication monitor UTI afebrile now on caspofungin continue same D/c anticipated in AM to snf DVT hep sq Medical - PN: Qual - VTE Deep Vein Thrombosis/Pulmonary Embolism Present on Admission: No
[2016-11-26] MEDS: glipiZIDE 5 MG TABLET PO SCH (17:43)
[2016-11-26] MEDS: SENNOSIDES/DOCUSATE SODIUM 1 TAB TABLET PO SCH (20:49)
[2016-11-26] MEDS: OXYBUTYNIN CHLORIDE 5 MG TABLET PO SCH (20:49)
[2016-11-26] MEDS: LATANOPROST OPHTH DROPS 2.5ML BOTTLE OU SCH (20:50)
[2016-11-27] MEDS: ACETAMINOPHEN 325 MG TABLET PO PRN (04:43)
[2016-11-27] MEDS: POLYVINYL ALCOHOL OPHTH DROPS 15ML BOTTLE OS SCH ×5 (05:16→13:13)
[2016-11-27] MEDS: 0.9 % SODIUM CHLORIDE 10 ML SYRINGE IV SCH (05:17)
[2016-11-27 06:05] LABS: Basophils # (Auto) 0.1 K/mcL (0.0-0.3); Basophils % (Auto) 0.9 % (0.0-2.0); Eosinophils # (Auto) 0.3 K/mcL (0.0-0.7); Eosinophils % (Auto) 3.1 % (0.0-7.0); Granulocytes % (Auto) 63.6 % (38.0-78.0); Lymphocytes # (Auto) 2.3 K/mcL (1.5-4.8); Lymphocytes % (Auto) 21.8 % (15.5-49.0); Mean Cell Volume 100.5 fL (80.0-100.0); Mean Corpuscular HGB Conc 34.3 g/dL (31.0-36.0); Mean Corpuscular Hemoglobin 34.5 pg (26.0-34.0); Monocytes # (Auto) 1.1 K/mcL (0.1-0.9); Monocytes % (Auto) 10.6 % (1.0-9.0); Platelet Count 294 K/mcL (140-440); RBC 3.19 M/mcL (4.00-5.20); Red Cell Distribution Width 12.2 % (11.5-14.5)
[2016-11-27 06:23] LABS: ALT/SGPT 26 U/l (0-40); Albumin 2.9 gm/dL (3.2-5.2); Albumin/Globulin Ratio 0.9 (1.0-2.3); Alkaline Phosphatase 69 U/L (39-117); Bilirubin,Direct < 0.2 mg/dL (0.0-0.3); Blood Urea Nitrogen 32 mg/dl (8-23); Gamma Glutamyl Transpeptidase 40 U/L (5-36); Magnesium 1.8 mg/dL (1.6-2.5); Phosphorous 4.6 mg/dL (2.7-4.5); Uric Acid 5.6 mg/dL (2.5-8.0)
[2016-11-27] MEDS: LEVOTHYROXINE 125 MCG TABLET PO SCH (07:00)
[2016-11-27] MEDS: glipiZIDE 5 MG TABLET PO SCH (07:00)
[2016-11-27] MEDS: PANTOPRAZOLE 40 MG TABLET PO SCH (07:00)
[2016-11-27] MEDS: INSULIN LISPRO 1 UNIT/0.01 ML UNIT SQ SCH ×2 (07:03→13:13)
[2016-11-27] MEDS: DOCUSATE SODIUM 100 MG CAPSULE PO SCH (07:52)
[2016-11-27] MEDS: valACYclovir 500 MG TABLET PO SCH (09:26)
[2016-11-27] MEDS: HEPARIN 5,000 UNIT/ML VIAL SQ SCH (09:27)
[2016-11-27] MEDS: OXYBUTYNIN CHLORIDE 5 MG TAB.XL.24H PO SCH (09:27)
[2016-11-27] MEDS: CLOPIDOGREL 75 MG TABLET PO SCH (09:27)
[2016-11-27] MEDS: sitaGLIPtin 100 MG TABLET PO SCH (09:27)
[2016-11-27] MEDS: FOLIC ACID 1 MG TABLET PO SCH (09:27)
[2016-11-27] MEDS: GABAPENTIN 100 MG CAPSULE PO SCH (09:27)
[2016-11-27] MEDS: LISINOPRIL 10 MG TABLET PO SCH (09:27)
[2016-11-27] MEDS: MULTIVIT,THER IRON,CA,FA & MIN 1 TABLET PO SCH (09:27)
[2016-11-27] MEDS: cefTRIAXone 2 GM in DEXTROSE 5% IN WATER 50 ML IV SCH (09:28)
[2016-11-27] MEDS: CASPOFUNGIN ACETATE 50 MG in 0.9 % SODIUM CHLORIDE 250 ML IV SCH (09:49)
[2016-11-27] MEDS: INSULIN GLARGINE, HUMAN 1 UNIT/0.01 ML SQ SCH ×2 (09:59→10:04)
--- NOTE | 2016-11-27 10:46 | Discharge Summary ---
Medical - DS: Prov Patient information: Note initiated : 11/27/16 at 10:41 am Service Date, if different from initiated Date: [] Patient: Teresa Nunn 86 y/o F admitted on 11/20/16 for Burning with urination. Chief Complaint: [] Date of admission: 11/20/16 19:15 Discharge date: 11/27/16 Primary care physician: [f_Reg Prim Care Provider] Admitting clinician: Jose Carreon Consults: 11/24/16 11:52 Consult to Physician [CONS] Routine Comment: Consulting Provider: [facility] Reason For Exam: Physician to Consult Attending physician on discharge: Angela Mayo Medical - DS: Meds - Discharge Medications Prescriptions: Clopidogrel 75 mg PO DAILY #60 Fluconazole [Diflucan] 200 mg PO DAILY #20 tablet Insulin Glargine, Human [Lantus] 15 unit SQ HS #3 vial glipiZIDE [Glucotrol] 10 mg PO BIDAC #60 tablet sitaGLIPtin [Januvia] 50 mg PO DAILY #30 tablet Active and Home Medications: Home Medications Clopidogrel 75 mg PO DAILY 11/20/16 [History Confirmed 11/20/16 Last Taken 11/20 08:00] Enalapril Maleate 10 mg PD BID 11/20/16 [History Confirmed 11/20/16 Last Taken 11/20/16 08:00] Glipizide ER 5 mg PO QAMAC 11/20/16 [History Confirmed 11/20/16 Last Taken 11/20 08:00] Glipizide ER 5 mg PO QPMAC 11/20/16 [History Confirmed 11/20/16 Last Taken 11/19 17:00] Latanoprost Ophth Drops [Xalatan Ophth Drops] 1 drop LEFT EYE HS 11/20/16 [ History Confirmed 11/20/16 Last Taken 11/19/16 21:00] Levothyroxine Sodium 125 mcg PO QAM 11/20/16 [History Confirmed 11/20/16 Last Taken 11/20/16 08:00] Oxybutynin Chloride ER 10 mg PO QAM 11/20/16 [History Confirmed 11/20/16 Last Taken 11/20/16 08:00] Oxybutynin Chloride [Ditropan] 5 mg PO HS 11/20/16 [History Confirmed 11/20/16 Last Taken 11/19/16 21:00] Pantoprazole [Protonix] 40 mg PO QAMAC 11/20/16 [History Confirmed 11/20/16 Last Taken 11/20/16 08:00] Pneumoccal 13 Vacc (Adult) [Prevnar 13 (Adult)] 0.5 ml IM PRN PRN 11/20/16 [ History Confirmed 11/20/16 Last Taken 2 Years Ago] Refresh Optive Eye Drops 1 drop BOTH EYES PRN PRN 11/20/16 [History Confirmed Last Taken Unknown] Timolol Maleate 1 drop LEFT EYE QAM 11/20/16 [History Confirmed 11/20/16 Last Taken 11/20/16 08:00] prednisoLONE 1% OPHTH DROPS 1 drop LEFT EYE TID 11/20/16 [History Confirmed Last Taken Unknown] valACYclovir [Valtrex] 1 gm PO DAILY 11/23/16 [History Confirmed 11/23/16 Last Taken 11/20/16] Medical - DS: Hosp Hospital course: Mr. Nunn is a 86 year old female who presented to the ER with hyperglycemia and UTI like symptoms UTI- The patient had burning urine and UA suggestive of UTI, treated with IV rocephin, Urine culture however was positive for Karley albicans. The patient was treated with IV caspofungin with good response. She will need total of 14 days of antibiotics. I have changed her to PO diflucan fo additional 10 days. The patient is presently on plavix which can interact with diflucan decreasing the effectiveneess of plavis. I have doubled the dose of plavix from 75mg once daily to 75mg bid to compensate for decrease effectiveness for 10 days, after which she will be back on 75mg once daily. Hyperglycemia/ Uncontrolled DM,- the Patient had elevated glucose > 600 on presentation, treated with IV fluids and insulin drop. Her glucose was managed while inpatient on lantus, humalog, sitaglipitin added to her regime. She was needing around 40 units of lantus to keep her glucose controlled. Given her age however I feel that she would be better with just orals and one time use of lantus. She will be discharged on glipizide 10mg twice daily (increase from 5mg bid as her home dose),. Added sitalipitin 50mg once daily (ajusted for renal clearnce) and lantus 15 units qhs. her dose of lantus can be adjusted by her PCP as outpatient for optimal glucose control. I do not feel this patient is a candidate for 4 times insulin unless supervised by someone else. It may be worthwhile to try her just on orals if possible. DM education as outpatient. The rest of the patient conditions remained stable, no changes in her home medications have been done except as mentioned above. Patient on discharge is afebrile, tolerating po well, with wbc normal. She will be d/c to snf for rehab. Discharge diagnosis: Karley UTI, Uncontrolled DM. - Time Spent with Patient Total time spent providing and/or coordinating discharge services: Greater than 30 minutes Medical - DS: Exam - Constitutional Vitals: Vital Signs Temp Pulse Resp BP BP Pulse Ox 11/27/16 08:00 98.0 F 73 18 150/75 97 11/27/16 07:19 97 11/27/16 04:00 98.8 F 66 16 125/72 96 11/27/16 00:00 98.9 F 61 16 143/70 93 11/26/16 20:00 98.3 F 72 18 108/71 96 11/26/16 16:00 98.1 F 18 128/78 97 11/26/16 12:51 97.5 F L 16 167/56 96 Intake and Output 11/26/16 11/27/16 11/27/16 21:59 05:59 13:59 Intake Total 1520 / 1520 300 / 300 Output Total Balance 1519 / 1519 297 / 297 Intake: Oral 1520 / 1520 300 / 300 Output: # of times incontinent of 3 urine Other: Meal Lunch Percent of Meal Consumed 100% Feeding Ability Independent # Bowel Movements 0 Weight 143 lb Additional comments: Constitutional; Afebrile, cooperative, alert, not in distress. Eyes- No icterus, Pupils equal, reactive, No periorbital swelling Ears- Ext ear normal, hearing hard to conversation. Neck- Midline trachea, supple Respiratory system: Air Entry equal on both sides, No crackles or wheezing, no rhonchi. CVS- Rate rhythm regular, S1,S2 heard, no gallop, no rub. 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 Medical - DS: Data Procedures and tests throughout hospitalization: X ray abdomen- negative USG kidneys- Left renal stone, non obstructing, otherwise normal CXR normal DVT sree lower extyremities normal LEft shoulder X ray - Normal Labs on day of discharge: Labs from last 24 hours 11/27/16 11/27/16 04:25 04:25 WBC 10.6 RBC 3.19 L Hgb 11.0 L Hct 32.1 L MCV 100.5 H MCH 34.5 H MCHC 34.3 RDW 12.2 Plt Count 294 MPV 9.0 Gran % 63.6 Lymph % (Auto) 21.8 [place] % (Auto) 10.6 H Eos % (Auto) 3.1 Baso % (Auto) 0.9 Gran # 6.8 Lymph # 2.3 [place] # 1.1 H Eos # 0.3 Baso # 0.1 Sodium 137 Potassium 4.2 Chloride 100 Carbon Dioxide 23 Anion Gap 14.0 BUN 32 H Creatinine 1.1 GFR Calculation 45 Glucose 63 L Uric Acid 5.6 Calcium 9.1 Phosphorus 4.6 H Magnesium 1.8 Total Bilirubin < 0.2 Direct Bilirubin < 0.2 GGT 40 H AST 20 ALT 26 Alkaline Phosphatase 69 Lactate Dehydrogenase 155 Total Protein 6.0 Albumin 2.9 L Globulin 3.1 Albumin/Globulin Ratio 0.9 L Triglycerides 144 Preliminary micro results at discharge 11/24/16 08:50 Blood Culture - Preliminary Blood 11/24/16 09:59 Blood Culture - Preliminary Blood Medical - DS: A/P - Patient/Caregiver Discharge Instructions Activity: as per physical therapy, increase activity as tolerated Diet: Consistent Carbohydrate Additional Instructions: Follow up with PCP in 7 days Patient to have glucose checked three times a day. Plavix 75mg twice daily is for 10 days only, after which she will go back to 75mg once daily Diflucan 200mg once daily is for 10 days only Diabetes education as outpatient. - Problem Maintenance (1) Hyperosmolar non-ketotic state in patient with type 2 diabetes mellitus Status: Acute (2) Urinary tract infection Status: Acute Qualifiers: Urinary tract infection type: acute cystitis Hematuria presence: with hematuria Qualified Code(s): N30.01 - Acute cystitis with hematuria - Follow up Plan Follow up with: Jose Carreon MD [Physician] - Ana Cristina Valentine MD [Primary Care Provider] - Disposition: Xfer SNF Prognosis: Fair Rehab Potential: Fair I certify that the patient requires SNF services: Yes Overall status at discharge: patient is progressing back to baseline Medical - DS: Qual - VTE Deep Vein Thrombosis/Pulmonary Embolism Present on Admission: No
[2016-11-27] MEDS ORDERED: INSULIN GLARGINE, HUMAN 1 UNIT/0.01 ML SQ SCH ×2 (21:00)
[2016-11-28] MEDS ORDERED: sitaGLIPtin 50 MG TABLET PO SCH (09:00)
== END 2016-11-27 13:16 | DRG 637 ==
LOC: ED 12:34 → ICU 19:15 → MEDSUR 11-22 12:32
PROVIDERS: ADMIT Internal Medicine; ATTEND Internal Medicine